=== PATIENT | female | born 1940 | race Caucasian/White ===

== ENCOUNTER 2016-08-17 09:32 | Inpatient (IN) | payer BC, MEDICARE ==
[~2016-08-17] VITALS: Ht 162.6 cm; Wt 83.9 kg
--- NOTE | 2016-08-17 10:12 | RAD ---
Portable chest, 08/17/2016: History: Preop evaluation, fall The heart size and pulmonary vascularity are normal. There is mild tortuosity of the thoracic aorta. No pulmonary infiltrates are seen. There is no evidence of pleural fluid or pneumothorax. IMPRESSION: No acute cardiopulmonary abnormality is detected.
--- NOTE | 2016-08-17 10:16 | RAD ---
Pelvis with right hip, 3 views, 08/17/2016: History: Hip pain, fall The upper pelvis was not completely included on this exam. The bony structures are demineralized. There is a comminuted intertrochanteric fracture of the right hip. There is mild impaction and overriding at the fracture site. There are mild degenerative changes at both hip joints. No additional fracture or dislocation is evident. IMPRESSION: Acute intertrochanteric fracture of the right hip.
[2016-08-17] MEDS ORDERED: ONDANSETRON PF 4 MG/2 ML VIAL. IV PRN (10:45)
--- NOTE | 2016-08-17 11:16 | ACF ---
Admission Forms Criteria MUSCULOSKELETAL DISEASE GRG Clinical Indications for Admission to Inpatient Care (Place 'X' for any and all applicable criteria): Hospital admission is needed for appropriate care of the patient because of 1 or more of the following: [X]I. Fracture, dislocation, or other musculoskeletal injury requiring inpatient care(medical) as indicated by 1 or more of the following(4)(5)(6)(7) [ ]a) Vertebral fracture requiring observation for instability or neurologic compromise (8) [ ]b) Compartment syndrome (proven or cannot be ruled out during observation level of care) (9) [ ]c) Limb-threatening injury [ ]d) Major injury requiring inpatient stabilization such as traction initiation or external fixation before internal fixation or closure of complex or open fracture [X]e) Major injury requiring inpatient treatment after emergency or observation level care (as appropriate) [ ]f) Severe pain requiring acute inpatient management [ ]g) Injury with suspicion of abuse or neglect (eg., child, dependent elderly) [ ]II. Newly diagnosed or suspected bone, joint, or orthopedic device infection (e.g., osteomyelitis, septic arthritis) needing 1 or more of the following(1)(2)(3) [ ]a) IV antibiotics that cannot be initiated in other than inpatient setting (e.g., patient too unstable or home infusion not available) [ ]b) Device removal or replacement [ ]c) Bone or soft tissue debridement [ ]d) Joint drainage (drain placement or repetitive aspirations) [ ]III. Severe rheumatologic disease (e.g., systemic lupus erythematosus, rheumatoid arthritis) with complications or comorbidities (Also use Optimal Recovery Care Criteria or General Recovery Criteria as appropriate on the basis of predominant condition), including 1 or more of the following( 10)(11)(12)(13) [ ]a) Severe infection (e.g., POND TENDER infection, sepsis) (14) [ ]b) Respiratory complications, including 1 or more of the following : [ ]i) Pleural effusion with respiratory compromise [ ]ii) Pulmonary hypertension with congestive failure [ ]iii) Respiratory failure [ ]iv) Pulmonary hemorrhage (15) [ ]c) Hematologic disease, including 1 or more of the following: [ ]i) Coagulopathy with bleeding [ ]ii) Thrombosis with hypercoagulable state [ ]iii) Thrombotic thrombocytopenic purpura [ ]d) Cerebritis with seizures, psychosis, or other severe abnormalities [ ]e) Vertebral destruction with monitoring needed for cervical myelopathy& possible respiratory compromise [ ]f) Exacerbation that requires inpatient treatment (e.g., intravenous immunosuppression) (16) [ ]g) Acute renal failure [ ]h) Cerebritis with seizures, psychosis, Altered mental status, or other neurologic abnormalities [ ]i) Pericardial effusion with tamponade [ ]j) Vertebral destruction, with monitoring needed for cervical myelopathy and possible respiratory compromise [ ]IV. Severe vasculitis with complications or comorbidities (Also use Optimal Recovery Care Criteria General Recovery Criteria as appropriate on the basis of predominant condition), including 1 or more of the following(11)(12)(17)(18)(19)(20) [ ]a) Exacerbation that requires inpatient treatment (e.g., intravenous immunosuppression) (19)(21) [ ]b) Pulmonary hemorrhage (15) [ ]c) POND TENDER vasculitis with seizures, psychosis, Altered mental status that is severe or persistent, or other severe abnormalities (22) [ ]d) Cerebral infarction [ ]e) Gastrointestinal ischemia [ ]f) Gangrene or threatened amputation [ ]g) Renal failure (16) [ ]h) Other significant complications of vasculitis ( eg., tissue or organ ischemia, organ dysfunction ) [ ]V. Severe myopathy as indicated by 1 or more of the following (28)(29) [ ]a) New onset of airway compromise or inability to swallow [ ]b) Respiratory deterioration with observation needed for impending respiratory failure [ ]c) Exacerbation that requires inpatient treatment (e.g., intravenous immunosuppression) [ ]. Severe crystal gout (arthropathy) indicated by 1 or more of the following (23)(24) [ ]a) Severe pain requiring acute inpatient management [ ]b) Exacerbation that requires inpatient treatment (e.g., intravenous treatment) [ ]VII.Rhabdomyolysis and 1 or more of the following (25)(26)(27) [ ]a) Acute renal failure [ ]b) Need for intravenous hydration after emergency or observation level care (as appropriate) [ ]c) Inability to maintain oral hydration [ ]d) Change in mental status [ ]e) Electrolyte abnormality that remains after emergency or observation level care (as appropriate) [ ]VIII Post amputation complication, as indicated by ANY ONE of the following [ ]a) Infection [ ]b) Dehiscence [ ]c) Myodesis failure [ ]IX. Severe pain requiring acute inpatient management due to musculoskeletal condition [ ]X. Musculoskeletal Disease and ALL of the following: [ ]a) Symptom or finding for which emergency and observation care have failed or are not considered appropriate (Use General Criteria: Observation Care as appropriate) [ ]b) Presence of ANY ONE of the following [ ]i) A General Admission Criteria [ ]ii) A Pediatric General Admission Criteria The original [facility] content created by [email or web address] [employer] has been revised. The portions of the content which have been revised are identified through the use of italic text or in bold, and [facility] has neither reviewed nor approved the modified material. All other unmodified content is copyright [facility]. Please see references footnoted in the original [facility] edition 2016 Admission Criteria Met?: Yes FLORIDALMA ORTIZ August 17, 2016 11:15
[2016-08-17 11:19] LABS: INR 1.1 (0.8-1.1); PROTHROMBIN TIME PATIENT 13.5 SEC (11.7-14.0)
[2016-08-17 11:23] LABS: CALCIUM 8.6 mg/dL (8.5-10.1); GFR 54.2
[2016-08-17 11:27] LABS: ALBUMIN 3.4 g/dL (3.4-5.0); TOTAL BILIRUBIN 0.5 mg/dL (0.2-1.0); TOTAL PROTEIN 6.9 g/dL (6.4-8.2)
[2016-08-17] MEDS: fentaNYL PF VIAL 100 MCG/2 ML VIAL IV PRN ×2 (11:29→14:20)
--- NOTE | 2016-08-17 11:58 | PHYS DOC ---
Past Medical History Past Medical History: Arthritis, Constipation, Hypertension, Other Additional Past Medical Histor: hernia, graves disease, gout Past Surgical History: Hysterectomy, Tonsillectomy, Other Additional Past Surgical Histo: tumor removed off adrenal gland, RT ARM SURGERY , HERNIA REPAIR, LFT BREAST Alcohol Use: None Drug Use: Marijuana Social History Narrative: MEDICAL MARIJUANA Adult General Chief Complaint Chief Complaint: HIP PAIN HPI HPI Patient is a 75 year old male presenting to the emergency department for evaluation of right hip pain status post fall shortly prior to arrival. She takes cannabis candies and she is slightly confused currently the only place that she complains of pain is her right hip. She denies any weakness numbness or tingling. Review of Systems Review of Systems Constitutional: Denies fever or chills [] Eyes: Denies change in visual acuity, redness, or eye pain [] HENT: Denies nasal congestion or sore throat [] Respiratory: Denies cough or shortness of breath [] Cardiovascular: No additional information not addressed in HPI [] GI: Denies abdominal pain, nausea, vomiting, bloody stools or diarrhea [] : Denies dysuria or hematuria [] Musculoskeletal: Denies back pain. + R hip joint pain [] Integument: Denies rash or skin lesions [] Neurologic: Denies headache, focal weakness or sensory changes [] Allergies Allergies Allergies Coded Allergies Type Severity Reaction Last Updated Verified Penicillins Allergy Intermediate 02/05/15 No Physical Exam Physical Exam Constitutional: Well developed, well nourished, no acute distress, non-toxic appearance. [] HENT: Normocephalic, atraumatic, bilateral external ears normal, oropharynx moist, no oral exudates, nose normal. [] Eyes: PERRLA, EOMI, conjunctiva normal, no discharge. [] Neck: Normal range of motion, no tenderness, supple, no stridor. [] Cardiovascular:Heart rate regular rhythm, no murmur [] Lungs & Thorax: Bilateral breath sounds clear to auscultation [] Abdomen: Bowel sounds normal, soft, no tenderness, no masses, no pulsatile masses. [] Skin: Warm, dry, no erythema, no rash. [] Back: No tenderness, no CVA tenderness. [] Extremities: R hip ttp Neurologic: Alert and oriented X 3, normal motor function, normal sensory function, no focal deficits noted. [] Current Patient Data Vital Signs Vital Signs Date Time Temp Pulse Resp B/P (MAP) Pulse Ox O2 Delivery O2 Flow Rate FiO2 08/17/16 10:00 68 117/72 (87) 97 Room Air 08/17/16 09:40 97.8 20 97.8 EKG EKG [] Radiology/Procedures Radiology/Procedures Right hip intertrochanteric fracture. Course & Med Decision Making Course & Med Decision Making Right hip fracture will require surgery and she will be admitted to the hospitalist service. Dragon Disclaimer Dragon Disclaimer This electronic medical record was generated, in whole or in part, using a voice recognition dictation system. Departure Departure Impression: Primary Impression: Hip fracture, intertrochanteric Disposition: ADMITTED INPATIENT Admitting Physician: Phuong Finch Condition: STABLE Referrals: NON,STAFF (PCP) Problem Qualifiers Primary Impression: Hip fracture, intertrochanteric Encounter type: initial encounter Fracture type: closed Fracture alignment : displaced Laterality: right Qualified Codes: S72.141A - Displaced intertrochanteric fracture of right femur, initial encounter for closed fracture SHAUNA BOONE DO August 17, 2016 11:57
[2016-08-17 12:43] LABS: BASO % 0 % (0-3); EOS % 1 % (0-3); HEMATOCRIT 38.3 % (36.0-47.0); HEMOGLOBIN 12.8 g/dL (12.0-15.5); LYMPH # 1.8 x10^3/uL (1.0-4.8); LYMPH % 12 % (24-48); MEAN CORPUSCULAR HEMOGLOBIN 29 pg (25-35); MEAN CORPUSCULAR HGB CONC 34 g/dL (31-37); MEAN CORPUSCULAR VOLUME 88 fL (79-100); MONO % 6 % (0-9); NEUT % 81 % (31-73); PLATELET COUNT 212 x10^3/uL (140-400); RED BLOOD COUNT 4.37 x10^6/uL (3.50-5.40); RED CELL DISTRIBUTION WIDTH 15.3 % (11.5-14.5); WHITE BLOOD COUNT 15.2 x10^3/uL (4.0-11.0)
[2016-08-17] MEDS ORDERED: CLINDAMYCIN 900MG PREMIX 50 ML IV ONE (13:15)
[2016-08-17 13:43] VITALS: BP 150/69
[2016-08-17 15:00] VITALS: BP_SYST 102; BP_SYST 134; BP_DIAS 51; BP_DIAS 84
--- NOTE | 2016-08-17 15:59 | PDOC1 ---
History and Physical Date of Admission Date of Admission DATE: 08/17/16 TIME: 15:53 Identification/Chief Complaint Chief Complaint hip pain Problems: Source Source: Caregiver, Chart review, Patient History of Present Illness History of Present Illness Ms. Galindo is a 75 year old female admit after a fall, w./ right hip pain. She was tripped by a dog when on the stairs and fell no her right hip. new fx, seen by Ortho, plan to OR in AM Pain 7/10, now 4./10 after IV pain meds She takes cannabis candies for left eye pain s/p ocular shingles Past Medical History Cardiovascular: HTN Pulmonary: No pertinent hx Heme/Onc: No pertinent hx Hepatobiliary: No pertinent hx Psych: No pertinent hx Infectious disease: Herpes zoster Endocrine: Hypothyroidism, Other (Gout) Dermatology: Other Family History Family History: Hypertension Social History Smoke: No ALCOHOL: rare Drugs: Marijuana Current Problem List Problem List Problems Medical Problems: (1) Hip fracture, intertrochanteric Status: Acute Problems: Current Medications Current Medications Current Medications Ondansetron HCl (Zofran) 4 mg PRN Q8HRS PRN IV NAUSEA/VOMITING Last administered on 08/17/16 11:25; Start 08/17/16 at 10:45; Stop 08/18/16 at 10:44 Fentanyl Citrate (Fentanyl 2ml Vial) 50 mcg PRN Q1HR PRN IV PAIN Last administered on 08/17/16t 14:20; Start 08/17/16 at 10:45; Stop 08/18/16 at 10:44 Clindamycin Phosphate 50 ml @ 100 mls/hr 1X ONCE IV ; Start 08/17/16 at 13:15 ; Stop 08/17/16 at 13:44; Status DC Oxycodone/ Acetaminophen (Percocet 7.5/ 325) 1 tab PRN Q4HRS PRN PO PAIN; Start 08/17/16 at 15:15 Allergies Allergies: Coded Allergies: Latex, Natural Rubber (Verified Allergy, Intermediate, LOCALIZED REDDNESS AND SWELLING, 08/17/16) Penicillins (Unverified Allergy, Intermediate, 02/05/15) ROS General: No: Chills, Night Sweats, Fatigue, Malaise, Appetite, Other PSYCHOLOGICAL ROS: No: Anxiety, Behavioral Disorder, Concentration difficultie , Decreased libido, Depression, Disorientation, Hallucinations, Hostility, Irritablity, Memory difficulties, Mood Swings, Obsessive thoughts, Physical abuse, Sexual abuse, Sleep disturbances, Suicidal ideation, Other Eyes: No Blurry vision, No Decreased vision, No Double vision, No Dry eyes, No Excessive tearing, No Eye Pain, No Itchy Eyes, No Loss of vision, No Photophobia , No Scotomata, No Uses contacts, No Uses glasses, No Other HEENT: No: Heacaches, Visual Changes, Hearing change, Nasal congestion, Nasal discharge, Oral lesions, Sinus pain, Sore Throat, Epistaxis, Sneezing, Snoring, Tinnitus, Vertigo, Vocal changes, Other Respiratory: No: Cough, Hemoptysis, Orthopnea, Pleuritic Pain, Shortness of breath, SOB with excertion, Sputum Changes, Stridor, Tachypnea, Wheezing, Other Cardiovascular: No Chest Pain, No Palpitations, No Orthopnea, No Paroxysmal Noc. Dyspnea, No Edema, No Lt Headedness, No Other Gastrointestinal: No Nausea, No Vomiting, No Abdominal Pain, No Diarrhea, No Constipation, No Melena, No Hematochezia, No Other Genitourinary: No Dysuria, No Frequency, No Incontinence, No Hematuria, No Retention, No Discharge, No Urgency, No Pain, No Flank Pain, No Other, No , No , No , No , No , No , No Musculoskeletal: No Gait Disturbance, No Joint Pain, No Joint Stiffness, No Joint Swelling, No Muscle Pain, No Muscular Weakness, No Pain In:, No Swelling In:, No Other Neurological: No Behavorial Changes, No Bowel/Bladder ControlChng, No Confusion , No Dizziness, No Gait Disturbance, No Headaches, No Impaired Coord/balance, No Memory Loss, No Numbness/Tingling, No Seizures, No Speech Problems, No Tremors, No Visual Changes, No Weakness, No Other Skin: Yes Dry Skin, No Eczema, No Hair Changes, No Lumps, No Mole Changes, No Mottling, No Nail Changes, No Pruritus, No Rash, No Skin Lesion Changes, No Other, No Acne Physical Exam General: Alert, No acute distress, mild distress HEENT: Atraumatic, EOMI, Mucous membr. moist/pink Lungs: Clear to auscultation Heart: no gallops Abdomen: Normal bowel sounds, Soft Extremities: No clubbing, No edema, Normal pulses Skin: No significant lesion Neuro: Normal gait, Normal speech, Normal tone, Sensation intact Psych/Mental Status: Mood NL Vitals Vitals Vital Signs Date Time Temp Pulse Resp B/P (MAP) Pulse Ox O2 Delivery O2 Flow Rate FiO2 08/17/16 14:20 18 Room Air 08/17/16 13:43 97.6 77 150/69 (96) 92 97.6 Labs Labs Laboratory Tests Test 08/17/16 11:00 08/17/16 12:20 Prothrombin Time 13.5 SEC (11.7-14.0) Prothromb Time International Ratio 1.1 (0.8-1.1) Activated Partial Thromboplast Time 26 SEC (24-38) Sodium Level 138 mmol/L (136-145) Potassium Level 4.0 mmol/L (3.5-5.1) Chloride Level 102 mmol/L (98-107) Carbon Dioxide Level 25 mmol/L (21-32) Anion Gap 11 (6-14) Blood Urea Nitrogen 26 mg/dL (7-20) Creatinine 1.0 mg/dL (0.6-1.0) Estimated GFR (Cockcroft-Gault) 54.2 BUN/Creatinine Ratio 26 (6-20) Glucose Level 132 mg/dL (70-99) Calcium Level 8.6 mg/dL (8.5-10.1) Total Bilirubin 0.5 mg/dL (0.2-1.0) Aspartate Amino Transf (AST/SGOT) 56 U/L (15-37) Alanine Aminotransferase (ALT/SGPT) 65 U/L (14-59) Alkaline Phosphatase 77 U/L (46-116) Total Protein 6.9 g/dL (6.4-8.2) Albumin 3.4 g/dL (3.4-5.0) Albumin/Globulin Ratio 1.0 (1.0-1.7) White Blood Count 15.2 x10^3/uL (4.0-11.0) Red Blood Count 4.37 x10^6/uL (3.50-5.40) Hemoglobin 12.8 g/dL (12.0-15.5) Hematocrit 38.3 % (36.0-47.0) Mean Corpuscular Volume 88 fL (79-100) Mean Corpuscular Hemoglobin 29 pg (25-35) Mean Corpuscular Hemoglobin Concent 34 g/dL (31-37) Red Cell Distribution Width 15.3 % (11.5-14.5) Platelet Count 212 x10^3/uL (140-400) Neutrophils (%) (Auto) 81 % (31-73) Lymphocytes (%) (Auto) 12 % (24-48) Monocytes (%) (Auto) 6 % (0-9) Eosinophils (%) (Auto) 1 % (0-3) Basophils (%) (Auto) 0 % (0-3) Neutrophils # (Auto) 12.3 x10^3uL (1.8-7.7) Lymphocytes # (Auto) 1.8 x10^3/uL (1.0-4.8) Monocytes # (Auto) 0.9 x10^3/uL (0.0-1.1) Eosinophils # (Auto) 0.2 x10^3/uL (0.0-0.7) Basophils # (Auto) 0.0 x10^3/uL (0.0-0.2) Laboratory Tests Test 08/17/16 11:00 08/17/16 12:20 Prothrombin Time 13.5 SEC (11.7-14.0) Prothromb Time International Ratio 1.1 (0.8-1.1) Activated Partial Thromboplast Time 26 SEC (24-38) Sodium Level 138 mmol/L (136-145) Potassium Level 4.0 mmol/L (3.5-5.1) Chloride Level 102 mmol/L (98-107) Carbon Dioxide Level 25 mmol/L (21-32) Anion Gap 11 (6-14) Blood Urea Nitrogen 26 mg/dL (7-20) Creatinine 1.0 mg/dL (0.6-1.0) Estimated GFR (Cockcroft-Gault) 54.2 BUN/Creatinine Ratio 26 (6-20) Glucose Level 132 mg/dL (70-99) Calcium Level 8.6 mg/dL (8.5-10.1) Total Bilirubin 0.5 mg/dL (0.2-1.0) Aspartate Amino Transf (AST/SGOT) 56 U/L (15-37) Alanine Aminotransferase (ALT/SGPT) 65 U/L (14-59) Alkaline Phosphatase 77 U/L (46-116) Total Protein 6.9 g/dL (6.4-8.2) Albumin 3.4 g/dL (3.4-5.0) Albumin/Globulin Ratio 1.0 (1.0-1.7) White Blood Count 15.2 x10^3/uL (4.0-11.0) Red Blood Count 4.37 x10^6/uL (3.50-5.40) Hemoglobin 12.8 g/dL (12.0-15.5) Hematocrit 38.3 % (36.0-47.0) Mean Corpuscular Volume 88 fL (79-100) Mean Corpuscular Hemoglobin 29 pg (25-35) Mean Corpuscular Hemoglobin Concent 34 g/dL (31-37) Red Cell Distribution Width 15.3 % (11.5-14.5) Platelet Count 212 x10^3/uL (140-400) Neutrophils (%) (Auto) 81 % (31-73) Lymphocytes (%) (Auto) 12 % (24-48) Monocytes (%) (Auto) 6 % (0-9) Eosinophils (%) (Auto) 1 % (0-3) Basophils (%) (Auto) 0 % (0-3) Neutrophils # (Auto) 12.3 x10^3uL (1.8-7.7) Lymphocytes # (Auto) 1.8 x10^3/uL (1.0-4.8) Monocytes # (Auto) 0.9 x10^3/uL (0.0-1.1) Eosinophils # (Auto) 0.2 x10^3/uL (0.0-0.7) Basophils # (Auto) 0.0 x10^3/uL (0.0-0.2) VTE Prophylaxis Ordered VTE Prophylaxis Devices: Yes VTE Pharmacological Prophylaxi: No Assessment/Plan Assessment/Plan hip fracture, hip pain to OR in AM htn gout, obesity, BMI 31 hypothyroid leukocytosis, reactive, will Order a ANIKA CARROLL MD August 17, 2016 15:59
[2016-08-17] MEDS ORDERED: ALLOPURINOL 100 MG TABLET. PO SCH (16:00)
[2016-08-17] MEDS ORDERED: amLODIPine BESYLATE 5 MG TABLET PO SCH (16:00)
[2016-08-17] MEDS ORDERED: TRAZ50TA15 PO (16:21)
[2016-08-17] MEDS ORDERED: LEVO150T5 PO (16:21)
[2016-08-17] MEDS ORDERED: HYDR12.53 PO (16:21)
[2016-08-17] MEDS ORDERED: CITA40TA5 PO (16:21)
[2016-08-17] MEDS ORDERED: ALLO100T PO (16:21)
[2016-08-17] MEDS ORDERED: AMLO2.5T PO (16:21)
[2016-08-17] MEDS ORDERED: BENA20TA2 PO (16:21)
[2016-08-17] MEDS: CITALOPRAM 20 MG TABLET. PO SCH (16:45)
[2016-08-17] MEDS: amLODIPine BESYLATE 2.5 MG TABLET PO SCH (16:45)
[2016-08-17] MEDS: ALLOPURINOL 100 MG TABLET. PO SCH (16:46)
[2016-08-17 17:56] LABS: BILIRUBIN,URINE NEGATIVE (NEG); GLUCOSE,URINE NEGATIVE (NEG); NITRITE,URINE NEGATIVE (NEG); PROTEIN,URINE NEGATIVE (NEG-TRACE); UROBILINOGEN,URINE 0.2 mg/dL (0.2 mg/dL)
[2016-08-17 18:08] LABS: BACTERIA,URINE 0 /HPF (0-FEW); RBC,URINE 0 /HPF (0-2); SQUAMOUS EPITHELIAL CELL,UR OCC /LPF; WBC,URINE OCC /HPF (0-4)
[2016-08-17 19:15] VITALS: BP 123/59
[2016-08-17] MEDS: oxyCODONE/APAP 7.5/325 1 TAB TABLET PO PRN (19:43)
[2016-08-17] MEDS: traZODone 50 MG TABLET. PO SCH (22:23)
[2016-08-17 23:12] VITALS: BP 113/63
[2016-08-18] VITALS (12 sets, daily range): BP systolic 89–148; BP diastolic 45–86
[2016-08-18] MEDS: fentaNYL PF VIAL 100 MCG/2 ML VIAL IV PRN ×3 (06:00→09:16)
[2016-08-18] MEDS ORDERED: BUPIVACAINE MPF 0.5% 30 ML VIAL. ONE (06:29)
[2016-08-18] MEDS ORDERED: LIDOCAINE 1% 20 ML VIAL. ONE (06:29)
[2016-08-18] MEDS ORDERED: PROPOFOL 20 ML IV ONE (06:49)
[2016-08-18] MEDS ORDERED: ONDANSETRON PF 4 MG/2 ML VIAL. ONE (06:49)
[2016-08-18] MEDS ORDERED: DEXAMETHASONE SOD PHOS 20 MG/5 ML VIAL. ONE (06:49)
[2016-08-18] MEDS ORDERED: LIDOCAINE 2% PF Vial for OR 5 ML VIAL. ONE (06:49)
[2016-08-18] MEDS ORDERED: SEVOFLURANE 61 TO 120 MINUTES. IH ONE (06:49)
[2016-08-18] MEDS ORDERED: KETOROLAC 60 MG/2 ML INJ FOR OR. ONE (06:50)
[2016-08-18] MEDS ORDERED: fentaNYL PF VIAL 100 MCG/2 ML VIAL ONE (06:50)
[2016-08-18] MEDS ORDERED: MORPHINE SULFATE 2 MG/ML DISP.SYRIN. IV PRN (07:00)
[2016-08-18] MEDS ORDERED: HYDROmorphone 2 MG/ML VIAL IV PRN (07:00)
[2016-08-18] MEDS ORDERED: LIDOCAINE 1% 1 ML SYRINGE. ID PRN (07:00)
[2016-08-18] MEDS ORDERED: IV RINGERS,LACTATED 1000ML 1,000 ML IV SCH (07:00)
[2016-08-18] MEDS ORDERED: fentaNYL PF VIAL 100 MCG/2 ML VIAL IV PRN (07:00)
[2016-08-18] MEDS ORDERED: PROCHLORPERAZINE 10 MG/2 ML VIAL. IV PRN (07:00)
[2016-08-18] MEDS ORDERED: LEVOTHYROXINE 150 MCG TABLET PO SCH (07:00)
[2016-08-18] MEDS: LEVOTHYROXINE 150 MCG TABLET PO SCH ×2 (07:00→12:31)
--- NOTE | 2016-08-18 07:28 | PDOC ---
BRIEF OPERATIVE NOTE Date: August 18, 2016 Pre-Op Diagnosis R IT hip fx Post-Op Diagnosis same Procedure Performed IMN R hip fx Surgeon Robyn Anesthesia Type: General, Local Blood Loss 75mL Complications none LUISA BAILON II, MD August 18, 2016 07:28
[2016-08-18] MEDS ORDERED: CLINDAMYCIN 900MG PREMIX 50 ML IV ONE (07:30)
[2016-08-18] MEDS ORDERED: MORPHINE SULFATE 5 MG, KETOROLAC TROMETHAMINE 30 MG, ROPIVacaine 0.5% PF 60 ML, EPINEPH... INT ART ONE ×5 (07:45)
[2016-08-18] MEDS ORDERED: ePHEDrine PF IN SALINE 50 MG/5 ML DISP.SYRIN IV ONE (07:50)
--- NOTE | 2016-08-18 11:07 | EKG ---
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
--- NOTE | 2016-08-18 12:06 | OP ---
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 PREOPERATIVE DIAGNOSIS: Right intertrochanteric hip fracture. POSTOPERATIVE DIAGNOSIS: Right intertrochanteric hip fracture. PROCEDURE PERFORMED: Closed reduction and intramedullary nailing of right intertrochanteric hip fracture. COMPONENTS INSERTED: [employer] Trigen Intertan, 10 x 18 125-degree nail with a 100-mm lag screw, 95-mm compression screw, and a distal interlocking screw. ESTIMATED BLOOD LOSS: 75 mL. COMPLICATIONS: None. REASON FOR PROCEDURE: The patient is a very pleasant 75-year-old, visiting friends around the area when she slipped and fell, landing onto her right side. She was seen in our Emergency Department. For details, please see my consult note. I had a discussion of risks, benefits, and alternatives of the above surgery with her and she elected to proceed. DESCRIPTION OF PROCEDURE: The patient was greeted in the preoperative area by myself. Correct extremity was marked and verified. She was taken to the operative suite and antibiotics were started en route. Once in the OR, she was transferred gently supine to the OR table after successful induction of general anesthesia. All pressure points were padded. We placed her arms across the chest and secured them in place over a pillow. Left leg in a well-leg price. Right leg in a traction ski boot. Peroneal post, padded, was used. I then brought in C-arm for my reduction maneuver and noted that her fracture was a little difficult and took me more time to reduce. Once I was satisfied with the relationship of the head and neck and shaft, I then prepped and draped the right hip and lower extremity in our usual sterile fashion. We then conducted a standard preoperative timeout. I then brought in C-arm again to confirm that my reduction was maintained and then palpated, marked surface anatomy and made an incision proximal to her greater trochanter and bluntly dissected down to the tip of the greater trochanter and inserted the guidewire under biplanar fluoroscopic guidance and then followed this with my entry reamer. I then impacted my nail into position followed by placing the trocar against the skin laterally for my lag and compression screws. I then incised the skin over here as well as the fascia and inserted the inner trocar down to bone. I then advanced my guidewire to a center-center position as guided by biplanar fluoroscopy and then used my lateral entry drill for my compression screw followed by my de-rotation bar and then drilled for my lag screw and noted that drilling for the lag screw resulted in some loss of reduction, but I felt that generating compression with my construct would help counteract this. I therefore measured for my lag screw and placed my lag screw to generate approximately 7 mm of compression. After my lag screw was placed, I then placed my compression screw, which reduced the fracture gap somewhat. After this, I removed that aiming arm and placed my distal interlocking screw aiming arm against the skin and made a stab incision and bluntly dissected and spread down to bone with a hemostat and then inserted my trocar against the bone. I then drilled and measured off the drill bit and then placed my distal interlocking screw. I then took my final images after removing the aiming arm, confirming appropriate fracture reduction and hardware position. I then injected my periarticular mixture into the bryce-incisional areas and around the fracture site. After this, I closed the subcutaneous tissue with inverted, interrupted 2-0 followed by layo for the skin. The leg was cleansed and dried and exclusive dressings were applied. Traction had been released after placement of the distal interlocking screw. She was awakened from anesthesia and transferred in supine to the recovery room prior to be taken to PACU in stable and extubated condition. Prior to completion of wound closure, all counts were reported as correct x 2. She can weight bear as tolerated. She will be re-admitted to the care of the hospitalist service. NILES BAILON MD DR: GEOFFREY/angeles JOB#: [id number] / [id number] FLORENCIO
[2016-08-18] MEDS: amLODIPine BESYLATE 2.5 MG TABLET PO SCH (12:22)
[2016-08-18] MEDS: CITALOPRAM 20 MG TABLET. PO SCH (12:23)
[2016-08-18] MEDS: ALLOPURINOL 100 MG TABLET. PO SCH (12:23)
--- NOTE | 2016-08-18 12:28 | CONS ---
DATE OF CONSULTATION: 08/17/2016 REFERRING PROVIDER: Phuong Finch. CONSULTING PROVIDER: Niles Carlson MD REASON FOR CONSULTATION: Right hip fracture. CHIEF COMPLAINT: Right hip pain. Left chest wall pain. HISTORY OF PRESENT ILLNESS: The patient is a very pleasant 75-year-old visiting the nuns at the [facility], when she lost her footing and misstepped coming out of their residence. She tells me she fell, landed onto her right side and noted immediate onset of hip pain and inability to bear weight. She denies any preceding symptoms. She denies hitting her head on the way down. Her hip pain is tolerable at rest, it is worse with movement. It does radiate to her thigh. Regarding her left sided chest wall pain, it hurts when something touches her or if she presses on it, but otherwise is not that noticeable. PAST MEDICAL HISTORY: 1. Arthritis. 2. Constipation. 3. Hypertension. 4. Graves' disease. 5. Gout. 6. Incisional hernia. PAST SURGICAL HISTORY: Hysterectomy, tonsillectomy, adrenal tumor resection, cubital tunnel release, herniorrhaphy. SOCIAL HISTORY: Uses marijuana, most recent this morning. REVIEW OF SYSTEMS: Twelve point review of systems negative except as per HPI. MEDICATIONS: Reviewed, please see MRAD. PHYSICAL EXAMINATION: GENERAL: The patient is alert and oriented. Her speech is clear. She answers and asks questions appropriately. HEENT: Head normocephalic, atraumatic. Extraocular muscles are intact. CARDIOVASCULAR: Regular rate and rhythm. LUNGS: Respirations are unlabored. ABDOMEN: Soft, nondistended. EXTREMITIES: Examination of bilateral upper extremities reveals well healed cubital tunnel incision on the right side. She does have atrophy in her hand. Otherwise, motor and sensation are intact in median, radial, ulnar nerves. Examination of bilateral lower extremities reveals right lower extremity short and externally rotated. Dorsalis pedis 1+ and symmetric. EHL and FHL 5/5 bilaterally. Tender over her right hip region. IMAGING: X-rays are reviewed. Chest x-ray report detected no abnormality. Hip x-ray as well as pelvis x-ray were interpreted by myself. The report was also reviewed. She has an intertrochanteric right hip fracture. IMPRESSION: Closed right intertrochanteric hip fracture. PLAN: I did discuss the risks, benefits, alternatives to proceeding with closed reduction and intramedullary nailing with this patient. Her questions were answered. I will call the operating room and schedule the case. She normally ambulates. She tells me she has not been exercising much in the past year secondary to medical problems, but otherwise she is active. NILES CARLSON MD DR: GEOFFREY/[place] JOB#: [id number] / [id number] FLORENCIO
--- NOTE | 2016-08-18 15:38 | PDOC ---
PROGRESS NOTES Chief Complaint Chief Complaint hip fracture, hip pain htn gout, obesity, BMI 31 hypothyroid leukocytosis, reactive, History of Present Illness History of Present Illness s/p OR pain much better feels well, less distress talkative and doing OK discussed wirh Dr. Carlson Vitals Vitals Vital Signs Date Time Temp Pulse Resp B/P (MAP) Pulse Ox O2 Delivery O2 Flow Rate FiO2 08/18/16 12:22 82 133/62 08/18/16 11:04 97.6 14 90 Room Air 97.6 08/18/16 09:58 2 Physical Exam General: Alert, Oriented X3, Cooperative, No acute distress Abdomen: Normal bowel sounds, Soft Extremities: No clubbing, No edema, Normal pulses Skin: No rashes, No significant lesion Labs LABS Laboratory Tests Test 08/17/16 16:00 08/17/16 16:30 Nasal Screen MRSA (PCR) Negative (Negative) Urine Color Yellow Urine Clarity Clear Urine pH 7.0 Urine Specific [place] 1.020 Urine Protein Negative mg/dL (NEG-TRACE) Urine Glucose (UA) Negative mg/dL (NEG) Urine Ketones (Stick) Negative mg/dL (NEG) Urine Blood Negative (NEG) Urine Nitrite Negative (NEG) Urine Bilirubin Negative (NEG) Urine Urobilinogen Dipstick 0.2 mg/dL (0.2 mg/dL) Urine Leukocyte Esterase Negative (NEG) Urine RBC 0 /HPF (0-2) Urine WBC Occ /HPF (0-4) Urine Squamous Epithelial Cells Occ /LPF Urine Bacteria 0 /HPF (0-FEW) Urine Mucus Mod /LPF Review of Systems Review of Systems no nv.d pain acceptable Assessment and Plan Assessmemt and Plan Problems Medical Problems: (1) Hip fracture, intertrochanteric Status: Acute Problems: Comment Review of Relevant I have reviewed the following items viola (where applicable) has been applied. Labs Laboratory Tests Test 08/17/16 11:00 08/17/16 12:20 08/17/16 16:00 08/17/16 16:30 Prothrombin Time 13.5 SEC (11.7-14.0) Prothromb Time International Ratio 1.1 (0.8-1.1) Activated Partial Thromboplast Time 26 SEC (24-38) Sodium Level 138 mmol/L (136-145) Potassium Level 4.0 mmol/L (3.5-5.1) Chloride Level 102 mmol/L (98-107) Carbon Dioxide Level 25 mmol/L (21-32) Anion Gap 11 (6-14) Blood Urea Nitrogen 26 mg/dL (7-20) Creatinine 1.0 mg/dL (0.6-1.0) Estimated GFR (Cockcroft-Gault) 54.2 BUN/Creatinine Ratio 26 (6-20) Glucose Level 132 mg/dL (70-99) Calcium Level 8.6 mg/dL (8.5-10.1) Total Bilirubin 0.5 mg/dL (0.2-1.0) Aspartate Amino Transf (AST/SGOT) 56 U/L (15-37) Alanine Aminotransferase (ALT/SGPT) 65 U/L (14-59) Alkaline Phosphatase 77 U/L (46-116) Total Protein 6.9 g/dL (6.4-8.2) Albumin 3.4 g/dL (3.4-5.0) Albumin/Globulin Ratio 1.0 (1.0-1.7) White Blood Count 15.2 x10^3/uL (4.0-11.0) Red Blood Count 4.37 x10^6/uL (3.50-5.40) Hemoglobin 12.8 g/dL (12.0-15.5) Hematocrit 38.3 % (36.0-47.0) Mean Corpuscular Volume 88 fL (79-100) Mean Corpuscular Hemoglobin 29 pg (25-35) Mean Corpuscular Hemoglobin Concent 34 g/dL (31-37) Red Cell Distribution Width 15.3 % (11.5-14.5) Platelet Count 212 x10^3/uL (140-400) Neutrophils (%) (Auto) 81 % (31-73) Lymphocytes (%) (Auto) 12 % (24-48) Monocytes (%) (Auto) 6 % (0-9) Eosinophils (%) (Auto) 1 % (0-3) Basophils (%) (Auto) 0 % (0-3) Neutrophils # (Auto) 12.3 x10^3uL (1.8-7.7) Lymphocytes # (Auto) 1.8 x10^3/uL (1.0-4.8) Monocytes # (Auto) 0.9 x10^3/uL (0.0-1.1) Eosinophils # (Auto) 0.2 x10^3/uL (0.0-0.7) Basophils # (Auto) 0.0 x10^3/uL (0.0-0.2) Nasal Screen MRSA (PCR) Negative (Negative) Urine Color Yellow Urine Clarity Clear Urine pH 7.0 Urine Specific [place] 1.020 Urine Protein Negative mg/dL (NEG-TRACE) Urine Glucose (UA) Negative mg/dL (NEG) Urine Ketones (Stick) Negative mg/dL (NEG) Urine Blood Negative (NEG) Urine Nitrite Negative (NEG) Urine Bilirubin Negative (NEG) Urine Urobilinogen Dipstick 0.2 mg/dL (0.2 mg/dL) Urine Leukocyte Esterase Negative (NEG) Urine RBC 0 /HPF (0-2) Urine WBC Occ /HPF (0-4) Urine Squamous Epithelial Cells Occ /LPF Urine Bacteria 0 /HPF (0-FEW) Urine Mucus Mod /LPF Laboratory Tests Test 08/17/16 16:00 08/17/16 16:30 Nasal Screen MRSA (PCR) Negative (Negative) Urine Color Yellow Urine Clarity Clear Urine pH 7.0 Urine Specific [place] 1.020 Urine Protein Negative mg/dL (NEG-TRACE) Urine Glucose (UA) Negative mg/dL (NEG) Urine Ketones (Stick) Negative mg/dL (NEG) Urine Blood Negative (NEG) Urine Nitrite Negative (NEG) Urine Bilirubin Negative (NEG) Urine Urobilinogen Dipstick 0.2 mg/dL (0.2 mg/dL) Urine Leukocyte Esterase Negative (NEG) Urine RBC 0 /HPF (0-2) Urine WBC Occ /HPF (0-4) Urine Squamous Epithelial Cells Occ /LPF Urine Bacteria 0 /HPF (0-FEW) Urine Mucus Mod /LPF Medications Current Medications Ondansetron HCl (Zofran) 4 mg PRN Q8HRS PRN IV NAUSEA/VOMITING Last administered on 08/17/16 11:25; Start 08/17/16 at 10:45; Stop 08/18/16 at 10:44 ; Status DC Fentanyl Citrate (Fentanyl 2ml Vial) 50 mcg PRN Q1HR PRN IV PAIN Last administered on 08/18/16 06:00; Start 08/17/16 at 10:45; Stop 08/18/16 at 10:44 ; Status DC Clindamycin Phosphate 50 ml @ 100 mls/hr 1X ONCE IV ; Start 08/17/16 at 13:15 ; Stop 08/17/16 at 13:44; Status Cancel Oxycodone/ Acetaminophen (Percocet 7.5/ 325) 1 tab PRN Q4HRS PRN PO PAIN Last administered on 08/17/16 19:43; Start 08/17/16 at 15:15 Levothyroxine Sodium (Synthroid) 150 mcg DAILY07 PO ; Start 08/18/16 at 07:00; Stop 08/18/16 at 07:00; Status DC Amlodipine Besylate (Norvasc) 2.5 mg DAILY PO ; Start 08/17/16 at 16:00; Stop at 16:27; Status DC Allopurinol (Zyloprim) 100 mg DAILY PO ; Start 08/17/16 at 16:00; Stop 08/17/16 at 16:25; Status DC Allopurinol (Zyloprim) 100 mg DAILY PO Last administered on 08/18/16 12:23; Start 08/17/16 at 17:00 Amlodipine Besylate (Norvasc) 2.5 mg DAILY PO Last administered on 08/18/16 12 :22; Start 08/17/16 at 17:00 Levothyroxine Sodium (Synthroid) 150 mcg DAILY07 PO Last administered on 12:31; Start 08/18/16 at 07:00 Trazodone HCl (Desyrel) 75 mg QHS PO Last administered on 08/17/16 22:23; Start 08/17/16 at 21:00 Citalopram Hydrobromide (CeleXA) 40 mg DAILY PO Last administered on 08/18/16 12:23; Start 08/17/16 at 17:00 Fentanyl Citrate (Fentanyl 2ml Vial) 25 mcg PRN Q5MIN PRN IV MILD PAIN; Start 08/18/16 at 07:00; Stop 08/19/16 at 06:59 Fentanyl Citrate (Fentanyl 2ml Vial) 50 mcg PRN Q5MIN PRN IV MODERATE PAIN Last administered on 08/18/16 09:16; Start 08/18/16 at 07:00; Stop 08/19/16 at 06:59 Morphine Sulfate 1 mg PRN Q10MIN PRN IV SEVERE PAIN; Start 08/18/16 at 07:00; Stop 08/19/16 at 06:59 Ringer's Solution 1,000 ml @ 30 mls/hr Q24H IV Last administered on 08/18/16t 07:36; Start 08/18/16 at 07:00; Stop 08/18/16 at 18:59 Lidocaine HCl 2 ml PRN 1X PRN ID PRIOR TO IV START; Start 08/18/16 at 07:00; Stop 08/19/16 at 06:59 Hydromorphone HCl (Dilaudid) 0.5 mg PRN Q10MIN PRN IV SEV PAIN, Second choice; Start 08/18/16 at 07:00; Stop 08/19/16 at 06:59 Prochlorperazine Edisylate (Compazine) 5 mg PACU PRN PRN IV NAUSEA, MRX1; Start 08/18/16 at 07:00; Stop 08/19/16 at 06:59 Clindamycin Phosphate 50 ml @ 100 mls/hr 1X ONCE IV Last administered on 08/18t 07:48; Start 08/18/16 at 07:30; Stop 08/18/16 at 07:59; Status DC Bupivacaine HCl (Sensorcaine Mpf 0.5%) 30 ml STK-MED ONCE .ROUTE ; Start at 06:29; Stop 08/18/16 at 06:30; Status DC Lidocaine HCl 20 ml STK-MED ONCE .ROUTE ; Start 08/18/16 at 06:29; Stop at 06:30; Status DC Dexamethasone Sodium Phosphate (Decadron) 20 mg STK-MED ONCE .ROUTE ; Start at 06:49; Stop 08/18/16 at 06:50; Status DC Ondansetron HCl (Zofran) 4 mg STK-MED ONCE .ROUTE ; Start 08/18/16 at 06:49; Stop 08/18/16 at 06:50; Status DC Propofol 20 ml @ As Directed STK-MED ONCE IV ; Start 08/18/16 at 06:49; Stop at 06:50; Status DC Lidocaine HCl (Lidocaine Pf 2% Vial) 5 ml STK-MED ONCE .ROUTE ; Start 08/18/16 at 06:49; Stop 08/18/16 at 06:50; Status DC Sevoflurane (Ultane) 60 ml STK-MED ONCE IH ; Start 08/18/16 at 06:49; Stop 08/18 at 06:50; Status DC Fentanyl Citrate (Fentanyl 2ml Vial) 100 mcg STK-MED ONCE .ROUTE ; Start at 06:50; Stop 08/18/16 at 06:51; Status DC Ketorolac Tromethamine (Toradol For Or Only) 60 mg STK-MED ONCE .ROUTE ; Start 08/18/16 at 06:50; Stop 08/18/16 at 06:51; Status DC Clindamycin Phosphate 50 ml @ 100 mls/hr Q8H IV ; Start 08/18/16 at 16:00 Morphine Sulfate 5 mg/Ketorolac Tromethamine 30 mg/Ropivacaine 60 ml/ Epinephrine HCl 0.5 mg/Sodium Chloride 100 ml @ 100 mls/hr 1X PERIOP ONCE INT ART Last administered on 08/18/16t 08:13; Start 08/18/16 at 07:45; Stop at 08:44; Status DC Ephedrine Sulfate 50 mg STK-MED ONCE IV ; Start 08/18/16 at 07:50; Stop at 07:51; Status DC Active Scripts Active Reported Allopurinol 100 Mg Tablet 1 Tab PO DAILY Levothyroxine Sodium 150 Mcg Tablet 1 Tab PO DAILY Amlodipine Besylate 2.5 Mg Tablet 2.5 Mg PO DAILY Trazodone Hcl 50 Mg Tablet 1.5 Tab PO QHS Benazepril Hcl 20 Mg Tablet 1 Tab PO DAILY Hydrochlorothiazide Capsule (Hydrochlorothiazide) 12.5 Mg Capsule 1 Cap PO DAILY Citalopram Hbr (Citalopram Hydrobromide) 40 Mg Tablet 1 Tab PO DAILY Vitals/I & O Vital Sign - Last 24 Hours 08/17/16 08/17/16 08/17/16 08/17/16 19:15 19:43 20:00 20:43 Temp 98.3 98.3 Pulse 64 Resp 18 16 16 B/P (MAP) 123/59 (80) Pulse Ox 94 O2 Delivery Room Air Room Air Room Air Room Air 08/17/16 08/18/16 08/18/16 08/18/16 23:12 03:03 06:00 06:32 Temp 98.3 97.6 98.3 97.6 Pulse 64 72 Resp 16 18 16 14 B/P (MAP) 113/63 (80) 129/65 (86) Pulse Ox 93 95 O2 Delivery Room Air Room Air Room Air Room Air 08/18/16 08/18/16 08/18/16 08/18/16 07:18 08:58 09:04 09:13 Temp 75 98.1 75.0 98.1 Pulse 96 90 Resp 20 16 16 14 B/P (MAP) 142/64 158/63 138/56 Pulse Ox 94 97 99 95 O2 Delivery Room Air Simple Mask Simple Mask Simple Mask O2 Flow Rate 10 10.0 10 08/18/16 08/18/16 08/18/16 08/18/16 09:16 09:23 09:28 09:43 Temp 97.3 97.3 Pulse 93 90 Resp 18 16 20 B/P (MAP) 125/57 134/55 Pulse Ox 95 95 96 O2 Delivery Simple Mask Nasal Cannula Nasal Cannula Nasal Cannula O2 Flow Rate 10.0 2 3 2 08/18/16 08/18/16 08/18/16 08/18/16 09:49 09:58 11:04 12:22 Temp 97.6 97.6 Pulse 84 82 82 Resp 14 14 B/P (MAP) 133/61 133/62 (85) 133/62 Pulse Ox 96 90 O2 Delivery Nasal Cannula Nasal Cannula Room Air O2 Flow Rate 2 2 Intake and Output 08/17/16 08/17/16 08/18/16 15:00 23:00 07:00 Intake Total 0 ml Output Total 800 ml 750 ml Balance -800 ml -750 ml ANIKA FOFANA MD August 18, 2016 15:38
[2016-08-18] MEDS: CLINDAMYCIN 900MG PREMIX 50 ML IV SCH ×2 (16:10→23:54)
[2016-08-18] MEDS ORDERED: WARFARIN 5 MG TABLET. PO ONE (17:00)
[2016-08-18] MEDS: traZODone 50 MG TABLET. PO SCH (20:57)
[2016-08-19 03:45] VITALS: BP 127/63
[2016-08-19] MEDS: LEVOTHYROXINE 150 MCG TABLET PO SCH (06:20)
[2016-08-19 07:00] VITALS: BP 132/60
--- NOTE | 2016-08-19 08:35 | PDOC ---
PROGRESS NOTES Chief Complaint Chief Complaint hip fracture, hip pain htn gout, obesity, BMI 31 hypothyroid leukocytosis, reactive, History of Present Illness History of Present Illness s/p OR pain much better feels well, less distress talkative and doing OK discussed shirin Carlson Vitals Vitals Vital Signs Date Time Temp Pulse Resp B/P (MAP) Pulse Ox O2 Delivery O2 Flow Rate FiO2 08/19/16 07:00 98.5 71 18 132/60 (84) 91 Room Air 98.5 08/18/16 09:58 2 Physical Exam General: Alert, Oriented X3, Cooperative, No acute distress Abdomen: Normal bowel sounds, Soft Extremities: No clubbing, No edema, Normal pulses Skin: No rashes, No significant lesion Review of Systems Review of Systems insomnia, hip pain no n/v/d eating well Assessment and Plan Assessmemt and Plan Problems Medical Problems: (1) Hip fracture, intertrochanteric Status: Acute Problems: Comment Review of Relevant I have reviewed the following items viola (where applicable) has been applied. Labs Laboratory Tests Test 08/17/16 11:00 08/17/16 12:20 08/17/16 16:00 08/17/16 16:30 Prothrombin Time 13.5 SEC (11.7-14.0) Prothromb Time International Ratio 1.1 (0.8-1.1) Activated Partial Thromboplast Time 26 SEC (24-38) Sodium Level 138 mmol/L (136-145) Potassium Level 4.0 mmol/L (3.5-5.1) Chloride Level 102 mmol/L (98-107) Carbon Dioxide Level 25 mmol/L (21-32) Anion Gap 11 (6-14) Blood Urea Nitrogen 26 mg/dL (7-20) Creatinine 1.0 mg/dL (0.6-1.0) Estimated GFR (Cockcroft-Gault) 54.2 BUN/Creatinine Ratio 26 (6-20) Glucose Level 132 mg/dL (70-99) Calcium Level 8.6 mg/dL (8.5-10.1) Total Bilirubin 0.5 mg/dL (0.2-1.0) Aspartate Amino Transf (AST/SGOT) 56 U/L (15-37) Alanine Aminotransferase (ALT/SGPT) 65 U/L (14-59) Alkaline Phosphatase 77 U/L (46-116) Total Protein 6.9 g/dL (6.4-8.2) Albumin 3.4 g/dL (3.4-5.0) Albumin/Globulin Ratio 1.0 (1.0-1.7) White Blood Count 15.2 x10^3/uL (4.0-11.0) Red Blood Count 4.37 x10^6/uL (3.50-5.40) Hemoglobin 12.8 g/dL (12.0-15.5) Hematocrit 38.3 % (36.0-47.0) Mean Corpuscular Volume 88 fL (79-100) Mean Corpuscular Hemoglobin 29 pg (25-35) Mean Corpuscular Hemoglobin Concent 34 g/dL (31-37) Red Cell Distribution Width 15.3 % (11.5-14.5) Platelet Count 212 x10^3/uL (140-400) Neutrophils (%) (Auto) 81 % (31-73) Lymphocytes (%) (Auto) 12 % (24-48) Monocytes (%) (Auto) 6 % (0-9) Eosinophils (%) (Auto) 1 % (0-3) Basophils (%) (Auto) 0 % (0-3) Neutrophils # (Auto) 12.3 x10^3uL (1.8-7.7) Lymphocytes # (Auto) 1.8 x10^3/uL (1.0-4.8) Monocytes # (Auto) 0.9 x10^3/uL (0.0-1.1) Eosinophils # (Auto) 0.2 x10^3/uL (0.0-0.7) Basophils # (Auto) 0.0 x10^3/uL (0.0-0.2) Nasal Screen MRSA (PCR) Negative (Negative) Urine Color Yellow Urine Clarity Clear Urine pH 7.0 Urine Specific [place] 1.020 Urine Protein Negative mg/dL (NEG-TRACE) Urine Glucose (UA) Negative mg/dL (NEG) Urine Ketones (Stick) Negative mg/dL (NEG) Urine Blood Negative (NEG) Urine Nitrite Negative (NEG) Urine Bilirubin Negative (NEG) Urine Urobilinogen Dipstick 0.2 mg/dL (0.2 mg/dL) Urine Leukocyte Esterase Negative (NEG) Urine RBC 0 /HPF (0-2) Urine WBC Occ /HPF (0-4) Urine Squamous Epithelial Cells Occ /LPF Urine Bacteria 0 /HPF (0-FEW) Urine Mucus Mod /LPF Medications Current Medications Ondansetron HCl (Zofran) 4 mg PRN Q8HRS PRN IV NAUSEA/VOMITING Last administered on 08/17/16 11:25; Start 08/17/16 at 10:45; Stop 08/18/16 at 10:44 ; Status DC Fentanyl Citrate (Fentanyl 2ml Vial) 50 mcg PRN Q1HR PRN IV PAIN Last administered on 08/18/16 06:00; Start 08/17/16 at 10:45; Stop 08/18/16 at 10:44 ; Status DC Clindamycin Phosphate 50 ml @ 100 mls/hr 1X ONCE IV ; Start 08/17/16 at 13:15 ; Stop 08/17/16 at 13:44; Status Cancel Oxycodone/ Acetaminophen (Percocet 7.5/ 325) 1 tab PRN Q4HRS PRN PO PAIN Last administered on 08/17/16 19:43; Start 08/17/16 at 15:15 Levothyroxine Sodium (Synthroid) 150 mcg DAILY07 PO ; Start 08/18/16 at 07:00; Stop 08/18/16 at 07:00; Status DC Amlodipine Besylate (Norvasc) 2.5 mg DAILY PO ; Start 08/17/16 at 16:00; Stop at 16:27; Status DC Allopurinol (Zyloprim) 100 mg DAILY PO ; Start 08/17/16 at 16:00; Stop 08/17/16 at 16:25; Status DC Allopurinol (Zyloprim) 100 mg DAILY PO Last administered on 08/18/16 12:23; Start 08/17/16 at 17:00 Amlodipine Besylate (Norvasc) 2.5 mg DAILY PO Last administered on 08/18/16 12 :22; Start 08/17/16 at 17:00 Levothyroxine Sodium (Synthroid) 150 mcg DAILY07 PO Last administered on 06:20; Start 08/18/16 at 07:00 Trazodone HCl (Desyrel) 75 mg QHS PO Last administered on 08/18/16 20:57; Start 08/17/16 at 21:00 Citalopram Hydrobromide (CeleXA) 40 mg DAILY PO Last administered on 08/18/16 12:23; Start 08/17/16 at 17:00 Fentanyl Citrate (Fentanyl 2ml Vial) 25 mcg PRN Q5MIN PRN IV MILD PAIN; Start 08/18/16 at 07:00; Stop 08/19/16 at 06:59; Status DC Fentanyl Citrate (Fentanyl 2ml Vial) 50 mcg PRN Q5MIN PRN IV MODERATE PAIN Last administered on 08/18/16 09:16; Start 08/18/16 at 07:00; Stop 08/19/16 at 06:59; Status DC Morphine Sulfate 1 mg PRN Q10MIN PRN IV SEVERE PAIN; Start 08/18/16 at 07:00; Stop 08/19/16 at 06:59; Status DC Ringer's Solution 1,000 ml @ 30 mls/hr Q24H IV Last administered on 08/18/16 07:36; Start 08/18/16 at 07:00; Stop 08/18/16 at 18:59; Status DC Lidocaine HCl 2 ml PRN 1X PRN ID PRIOR TO IV START; Start 08/18/16 at 07:00; Stop 08/19/16 at 06:59; Status DC Hydromorphone HCl (Dilaudid) 0.5 mg PRN Q10MIN PRN IV SEV PAIN, Second choice; Start 08/18/16 at 07:00; Stop 08/19/16 at 06:59; Status DC Prochlorperazine Edisylate (Compazine) 5 mg PACU PRN PRN IV NAUSEA, MRX1; Start 08/18/16 at 07:00; Stop 08/19/16 at 06:59; Status DC Clindamycin Phosphate 50 ml @ 100 mls/hr 1X ONCE IV Last administered on 08/18 07:48; Start 08/18/16 at 07:30; Stop 08/18/16 at 07:59; Status DC Bupivacaine HCl (Sensorcaine Mpf 0.5%) 30 ml STK-MED ONCE .ROUTE ; Start at 06:29; Stop 08/18/16 at 06:30; Status DC Lidocaine HCl 20 ml STK-MED ONCE .ROUTE ; Start 08/18/16 at 06:29; Stop at 06:30; Status DC Dexamethasone Sodium Phosphate (Decadron) 20 mg STK-MED ONCE .ROUTE ; Start at 06:49; Stop 08/18/16 at 06:50; Status DC Ondansetron HCl (Zofran) 4 mg STK-MED ONCE .ROUTE ; Start 08/18/16 at 06:49; Stop 08/18/16 at 06:50; Status DC Propofol 20 ml @ As Directed STK-MED ONCE IV ; Start 08/18/16 at 06:49; Stop at 06:50; Status DC Lidocaine HCl (Lidocaine Pf 2% Vial) 5 ml STK-MED ONCE .ROUTE ; Start 08/18/16 at 06:49; Stop 08/18/16 at 06:50; Status DC Sevoflurane (Ultane) 60 ml STK-MED ONCE IH ; Start 08/18/16 at 06:49; Stop 08/18 at 06:50; Status DC Fentanyl Citrate (Fentanyl 2ml Vial) 100 mcg STK-MED ONCE .ROUTE ; Start at 06:50; Stop 08/18/16 at 06:51; Status DC Ketorolac Tromethamine (Toradol For Or Only) 60 mg STK-MED ONCE .ROUTE ; Start 08/18/16 at 06:50; Stop 08/18/16 at 06:51; Status DC Clindamycin Phosphate 50 ml @ 100 mls/hr Q8H IV Last administered on t 23:54; Start 08/18/16 at 16:00; Stop 08/19/16 at 08:29 Morphine Sulfate 5 mg/Ketorolac Tromethamine 30 mg/Ropivacaine 60 ml/ Epinephrine HCl 0.5 mg/Sodium Chloride 100 ml @ 100 mls/hr 1X PERIOP ONCE INT ART Last administered on 08/18/16t 08:13; Start 08/18/16 at 07:45; Stop at 08:44; Status DC Ephedrine Sulfate 50 mg STK-MED ONCE IV ; Start 08/18/16 at 07:50; Stop at 07:51; Status DC Warfarin Sodium (Coumadin) 5 mg 1X ONCE PO Last administered on 08/18/16t 17: 38; Start 08/18/16 at 17:00; Stop 08/18/16 at 17:01; Status DC Warfarin Sodium (Coumadin Per Pharmacy) 1 each PRN DAILY PRN [facility] SEE COMMENTS; Start 08/18/16 at 16:15 Active Scripts Active Reported Allopurinol 100 Mg Tablet 1 Tab PO DAILY Levothyroxine Sodium 150 Mcg Tablet 1 Tab PO DAILY Amlodipine Besylate 2.5 Mg Tablet 2.5 Mg PO DAILY Trazodone Hcl 50 Mg Tablet 1.5 Tab PO QHS Benazepril Hcl 20 Mg Tablet 1 Tab PO DAILY Hydrochlorothiazide Capsule (Hydrochlorothiazide) 12.5 Mg Capsule 1 Cap PO DAILY Citalopram Hbr (Citalopram Hydrobromide) 40 Mg Tablet 1 Tab PO DAILY Vitals/I & O Vital Sign - Last 24 Hours 08/18/16 08/18/16 08/18/16 08/18/16 08:58 09:04 09:13 09:16 Temp 98.1 98.1 Pulse 96 90 Resp 16 16 14 18 B/P (MAP) 158/63 138/56 Pulse Ox 97 99 95 95 O2 Delivery Simple Mask Simple Mask Simple Mask Simple Mask O2 Flow Rate 10 10.0 10 10.0 08/18/16 08/18/16 08/18/16 08/18/16 09:23 09:28 09:43 09:49 Temp 97.3 97.3 Pulse 93 90 Resp 16 20 B/P (MAP) 125/57 134/55 Pulse Ox 95 96 O2 Delivery Nasal Cannula Nasal Cannula Nasal Cannula Nasal Cannula O2 Flow Rate 2 3 2 2 08/18/16 08/18/16 08/18/16 08/18/16 09:58 11:04 11:16 11:31 Temp 97.6 97.6 Pulse 84 82 84 84 Resp 14 14 14 14 B/P (MAP) 133/61 133/62 (85) 125/86 (99) 124/70 (88) Pulse Ox 96 90 89 89 O2 Delivery Nasal Cannula Room Air Room Air Room Air O2 Flow Rate 2 08/18/16 08/18/16 08/18/16 08/18/16 11:46 12:01 12:22 12:32 Pulse 79 81 82 86 Resp 14 14 14 B/P (MAP) 118/59 (78) 127/59 (81) 133/62 89/45 (60) Pulse Ox 87 89 O2 Delivery Room Air Room Air Room Air 08/18/16 08/18/16 08/18/16 08/18/16 13:02 14:58 15:00 19:50 Pulse 86 87 89 Resp 14 14 B/P (MAP) 126/62 (83) 107/70 (82) 148/64 (92) Pulse Ox 90 O2 Delivery Room Air Room Air Room Air 08/18/16 08/18/16 08/19/16 08/19/16 19:55 23:22 03:45 07:00 Temp 98.0 98.1 98.3 98.5 98.0 98.1 98.3 98.5 Pulse 93 78 72 71 Resp 18 18 18 18 B/P (MAP) 121/56 (77) 128/54 (78) 127/63 (84) 132/60 (84) Pulse Ox 92 92 90 91 O2 Delivery Room Air Room Air Room Air Room Air Intake and Output 08/18/16 08/18/16 08/19/16 15:00 23:00 07:00 Intake Total 1290 ml 480 ml Output Total 450 ml 1150 ml 2050 ml Balance 840 ml -1150 ml -1570 ml ANIKA FOFANA MD August 19, 2016 08:35
[2016-08-19] MEDS ORDERED: ZOLPIDEM 5 MG TABLET. PO PRN (08:45)
[2016-08-19] MEDS: CLINDAMYCIN 900MG PREMIX 50 ML IV SCH (08:52)
[2016-08-19] MEDS: DOCUSATE SODIUM 100 MG CAPSULE. PO SCH (08:53)
[2016-08-19] MEDS: amLODIPine BESYLATE 2.5 MG TABLET PO SCH (08:53)
[2016-08-19] MEDS: POLYETHYLENE GLYCOL 3350 17 GM PACKET. PO SCH (08:53)
[2016-08-19] MEDS: ALLOPURINOL 100 MG TABLET. PO SCH (08:53)
[2016-08-19] MEDS: CITALOPRAM 20 MG TABLET. PO SCH (08:53)
[2016-08-19 10:42] VITALS: BP 130/56
--- NOTE | 2016-08-19 13:59 | PDOC ---
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 Pain is well-controlled. She's been working with therapy and has been able to ambulate with the walker. She is from out of town and has some anxiety about how she is going to get home. She plans to go to [facility] if covered by insurance, and then fly home. Post-op Day: 1 (Right hip IM nail) Vitals Vital Signs Date Time Temp Pulse Resp B/P (MAP) Pulse Ox O2 Delivery O2 Flow Rate FiO2 08/19/16 10:42 98.7 72 18 130/56 (80) 91 Room Air 98.7 08/18/16 09:58 2 Labs Laboratory Tests Test 08/17/16 16:00 08/17/16 16:30 Nasal Screen MRSA (PCR) Negative (Negative) Urine Color Yellow Urine Clarity Clear Urine pH 7.0 Urine Specific [place] 1.020 Urine Protein Negative mg/dL (NEG-TRACE) Urine Glucose (UA) Negative mg/dL (NEG) Urine Ketones (Stick) Negative mg/dL (NEG) Urine Blood Negative (NEG) Urine Nitrite Negative (NEG) Urine Bilirubin Negative (NEG) Urine Urobilinogen Dipstick 0.2 mg/dL (0.2 mg/dL) Urine Leukocyte Esterase Negative (NEG) Urine RBC 0 /HPF (0-2) Urine WBC Occ /HPF (0-4) Urine Squamous Epithelial Cells Occ /LPF Urine Bacteria 0 /HPF (0-FEW) Urine Mucus Mod /LPF Notes Patient is awake and alert sitting up in chair. Breathing unlabored, no acute distress. Incision is well approximated with slight drainage noted on the dressing. Neurovascular intact right lower extremity. 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
[2016-08-19 14:56] VITALS: BP 116/66
[2016-08-19] MEDS ORDERED: WARFARIN 5 MG TABLET. PO ONE (16:00)
[2016-08-19] MEDS: ENOXAPARIN 40 MG/0.4 ML SYRINGE. SQ SCH (16:22)
[2016-08-19] MEDS: oxyCODONE/APAP 7.5/325 1 TAB TABLET PO PRN (16:22)
[2016-08-19 19:00] VITALS: BP 109/55
[2016-08-19] MEDS: traZODone 50 MG TABLET. PO SCH (20:57)
[2016-08-19 23:23] VITALS: BP 136/74
[2016-08-20 03:05] VITALS: BP 129/61
[2016-08-20] MEDS: LEVOTHYROXINE 150 MCG TABLET PO SCH (06:34)
[2016-08-20 07:00] VITALS: BP 119/58
[2016-08-20] MEDS: oxyCODONE/APAP 7.5/325 1 TAB TABLET PO PRN ×2 (08:43→21:21)
[2016-08-20] MEDS: ALLOPURINOL 100 MG TABLET. PO SCH (08:43)
[2016-08-20] MEDS: amLODIPine BESYLATE 2.5 MG TABLET PO SCH (08:43)
[2016-08-20] MEDS: DOCUSATE SODIUM 100 MG CAPSULE. PO SCH (08:43)
[2016-08-20] MEDS: CITALOPRAM 20 MG TABLET. PO SCH (08:43)
[2016-08-20] MEDS: POLYETHYLENE GLYCOL 3350 17 GM PACKET. PO SCH (08:44)
--- NOTE | 2016-08-20 09:03 | PDOC ---
ORTHO PROGRESS NOTES Subjective Pain is tolerable, progressing with therapy. Vitals Vital Signs Date Time Temp Pulse Resp B/P (MAP) Pulse Ox O2 Delivery O2 Flow Rate FiO2 08/20/16 08:43 77 119/58 08/20/16 07:00 96.6 20 90 96.6 08/20/16 03:05 Room Air Notes A and A in chair remains NVI RLE incision ok Assessment and Plan She is progressing appropriately. She can weight-bear as tolerated. I am okay with her transferring to a rehabilitation facility. Coumadin 1 month LUISA BAILON II, MD August 20, 2016 09:03
[2016-08-20] MEDS ORDERED: MAGNESIUM HYDROXIDE 2,400 MG/30 ML ORAL.SUSP. PO ONE (10:30)
[2016-08-20 11:00] VITALS: BP 124/61
[2016-08-20 11:14] LABS: INR 1.4 (0.8-1.1); PROTHROMBIN TIME PATIENT 16.1 SEC (11.7-14.0)
--- NOTE | 2016-08-20 12:43 | PDOC3 ---
Discharge Summary Visit Information Date of Admission: August 17, 2016 Date of Discharge: August 20, 2016 Admitting Diagnosis: hip facture Final Diagnosis hip fracture, hip pain htn gout, obesity, BMI 31 hypothyroid leukocytosis, reactive, Problems Medical Problems: (1) Hip fracture, intertrochanteric Status: Acute Brief Hospital Course Allergies Allergies Coded Allergies Type Severity Reaction Last Updated Verified Latex, Natural Rubber Allergy Intermediate LOCALIZED REDDNESS AND SWELLING Yes Penicillins Allergy Intermediate 08/18/16 No Vital Signs Vital Signs Date Time Temp Pulse Resp B/P (MAP) Pulse Ox O2 Delivery O2 Flow Rate FiO2 08/20/16 11:00 95.4 82 20 124/61 (82) 94 Room Air 95.4 Lab Results Laboratory Tests Test 08/20/16 10:40 Prothrombin Time 16.1 SEC (11.7-14.0) Prothromb Time International Ratio 1.4 (0.8-1.1) Laboratory Tests Test 08/20/16 10:40 Prothrombin Time 16.1 SEC (11.7-14.0) Prothromb Time International Ratio 1.4 (0.8-1.1) Brief Hospital Course Ms. Almendarez is a 75 old fell on stairs, after run into by a dog. traumatic fracture s/p OR nail on right hip, then pain much better discussed wi aislinn Goddard in clinic Discharge Information Condition at Discharge: Improved Follow Up: Weeks Disposition/Orders: D/C to Another Facility ([facility]) Scheduled Allopurinol (Allopurinol), 1 TAB PO DAILY, (Reported) Amlodipine Besylate (Amlodipine Besylate), 2.5 MG PO DAILY, (Reported) Benazepril Hcl (Benazepril Hcl), 1 TAB PO DAILY, (Reported) Citalopram Hydrobromide (Citalopram Hbr), 1 TAB PO DAILY, (Reported) Hydrochlorothiazide (Hydrochlorothiazide Capsule ), 1 CAP PO DAILY, (Reported ) Levothyroxine Sodium (Levothyroxine Sodium), 1 TAB PO DAILY, (Reported) Trazodone Hcl (Trazodone Hcl), 1.5 TAB PO QHS, (Reported) Patient Instructions Patient Instructions to skilled, Prov Place time > 30 min ANIKA FOFANA MD August 20, 2016 12:43
[2016-08-20 15:00] VITALS: BP 117/64
[2016-08-20] MEDS ORDERED: WARFARIN 4 MG TABLET. PO ONE (16:00)
[2016-08-20] MEDS: ENOXAPARIN 40 MG/0.4 ML SYRINGE. SQ SCH (16:52)
[2016-08-20 19:20] VITALS: BP 127/83
[2016-08-20] MEDS: traZODone 50 MG TABLET. PO SCH (21:19)
[2016-08-20 23:10] VITALS: BP 119/60
[2016-08-21 03:30] VITALS: BP 119/63
[2016-08-21 04:25] LABS: INR 1.6 (0.8-1.1); PROTHROMBIN TIME PATIENT 17.9 SEC (11.7-14.0)
[2016-08-21 07:00] VITALS: BP 141/67
[2016-08-21] MEDS: LEVOTHYROXINE 150 MCG TABLET PO SCH (07:30)
--- NOTE | 2016-08-21 09:04 | PDOC ---
PROGRESS NOTES Chief Complaint Chief Complaint LATE entry, pt seen 08/20, tried to DC hip fracture, hip pain htn gout, obesity, BMI 31 hypothyroid leukocytosis, reactive, History of Present Illness History of Present Illness s/p OR pain much better feels well, less distress talkative and doing OK discussed shirin Carlson Vitals Vitals Vital Signs Date Time Temp Pulse Resp B/P (MAP) Pulse Ox O2 Delivery O2 Flow Rate FiO2 08/21/16 07:00 97.5 65 20 141/67 (91) 99 Room Air 97.5 Physical Exam General: Alert, Oriented X3, Cooperative, No acute distress Abdomen: Normal bowel sounds, Soft Extremities: No clubbing, No edema, Normal pulses Skin: No rashes, No significant lesion Labs LABS Laboratory Tests Test 08/20/16 10:40 08/21/16 03:47 Prothrombin Time 16.1 SEC (11.7-14.0) 17.9 SEC (11.7-14.0) Prothromb Time International Ratio 1.4 (0.8-1.1) 1.6 (0.8-1.1) Assessment and Plan Assessmemt and Plan Problems Medical Problems: (1) Hip fracture, intertrochanteric Status: Acute Problems: Comment Review of Relevant I have reviewed the following items viola (where applicable) has been applied. Labs Laboratory Tests Test 08/20/16 10:40 08/21/16 03:47 Prothrombin Time 16.1 SEC (11.7-14.0) 17.9 SEC (11.7-14.0) Prothromb Time International Ratio 1.4 (0.8-1.1) 1.6 (0.8-1.1) Laboratory Tests Test 08/20/16 10:40 08/21/16 03:47 Prothrombin Time 16.1 SEC (11.7-14.0) 17.9 SEC (11.7-14.0) Prothromb Time International Ratio 1.4 (0.8-1.1) 1.6 (0.8-1.1) Medications Current Medications Ondansetron HCl (Zofran) 4 mg PRN Q8HRS PRN IV NAUSEA/VOMITING Last administered on 08/17/16t 11:25; Start 08/17/16 at 10:45; Stop 08/18/16 at 10:44 ; Status DC Fentanyl Citrate (Fentanyl 2ml Vial) 50 mcg PRN Q1HR PRN IV PAIN Last administered on 08/18/16 06:00; Start 08/17/16 at 10:45; Stop 08/18/16 at 10:44 ; Status DC Clindamycin Phosphate 50 ml @ 100 mls/hr 1X ONCE IV ; Start 08/17/16 at 13:15 ; Stop 08/17/16 at 13:44; Status Cancel Oxycodone/ Acetaminophen (Percocet 7.5/ 325) 1 tab PRN Q4HRS PRN PO PAIN Last administered on 08/20/16 21:21; Start 08/17/16 at 15:15 Levothyroxine Sodium (Synthroid) 150 mcg DAILY07 PO ; Start 08/18/16 at 07:00; Stop 08/18/16 at 07:00; Status DC Amlodipine Besylate (Norvasc) 2.5 mg DAILY PO ; Start 08/17/16 at 16:00; Stop at 16:27; Status DC Allopurinol (Zyloprim) 100 mg DAILY PO ; Start 08/17/16 at 16:00; Stop 08/17/16 at 16:25; Status DC Allopurinol (Zyloprim) 100 mg DAILY PO Last administered on 08/20/16 08:43; Start 08/17/16 at 17:00 Amlodipine Besylate (Norvasc) 2.5 mg DAILY PO Last administered on 08/20/16 08 :43; Start 08/17/16 at 17:00 Levothyroxine Sodium (Synthroid) 150 mcg DAILY07 PO Last administered on 07:30; Start 08/18/16 at 07:00 Trazodone HCl (Desyrel) 75 mg QHS PO Last administered on 08/20/16 21:19; Start 08/17/16 at 21:00 Citalopram Hydrobromide (CeleXA) 40 mg DAILY PO Last administered on 08/20/16 08:43; Start 08/17/16 at 17:00 Fentanyl Citrate (Fentanyl 2ml Vial) 25 mcg PRN Q5MIN PRN IV MILD PAIN; Start 08/18/16 at 07:00; Stop 08/19/16 at 06:59; Status DC Fentanyl Citrate (Fentanyl 2ml Vial) 50 mcg PRN Q5MIN PRN IV MODERATE PAIN Last administered on 08/18/16 09:16; Start 08/18/16 at 07:00; Stop 08/19/16 at 06:59; Status DC Morphine Sulfate 1 mg PRN Q10MIN PRN IV SEVERE PAIN; Start 08/18/16 at 07:00; Stop 08/19/16 at 06:59; Status DC Ringer's Solution 1,000 ml @ 30 mls/hr Q24H IV Last administered on 08/18/16 07:36; Start 08/18/16 at 07:00; Stop 08/18/16 at 18:59; Status DC Lidocaine HCl 2 ml PRN 1X PRN ID PRIOR TO IV START; Start 08/18/16 at 07:00; Stop 08/19/16 at 06:59; Status DC Hydromorphone HCl (Dilaudid) 0.5 mg PRN Q10MIN PRN IV SEV PAIN, Second choice; Start 08/18/16 at 07:00; Stop 08/19/16 at 06:59; Status DC Prochlorperazine Edisylate (Compazine) 5 mg PACU PRN PRN IV NAUSEA, MRX1; Start 08/18/16 at 07:00; Stop 08/19/16 at 06:59; Status DC Clindamycin Phosphate 50 ml @ 100 mls/hr 1X ONCE IV Last administered on 08/18 07:48; Start 08/18/16 at 07:30; Stop 08/18/16 at 07:59; Status DC Bupivacaine HCl (Sensorcaine Mpf 0.5%) 30 ml STK-MED ONCE .ROUTE ; Start at 06:29; Stop 08/18/16 at 06:30; Status DC Lidocaine HCl 20 ml STK-MED ONCE .ROUTE ; Start 08/18/16 at 06:29; Stop at 06:30; Status DC Dexamethasone Sodium Phosphate (Decadron) 20 mg STK-MED ONCE .ROUTE ; Start at 06:49; Stop 08/18/16 at 06:50; Status DC Ondansetron HCl (Zofran) 4 mg STK-MED ONCE .ROUTE ; Start 08/18/16 at 06:49; Stop 08/18/16 at 06:50; Status DC Propofol 20 ml @ As Directed STK-MED ONCE IV ; Start 08/18/16 at 06:49; Stop at 06:50; Status DC Lidocaine HCl (Lidocaine Pf 2% Vial) 5 ml STK-MED ONCE .ROUTE ; Start 08/18/16 at 06:49; Stop 08/18/16 at 06:50; Status DC Sevoflurane (Ultane) 60 ml STK-MED ONCE IH ; Start 08/18/16 at 06:49; Stop 08/18 at 06:50; Status DC Fentanyl Citrate (Fentanyl 2ml Vial) 100 mcg STK-MED ONCE .ROUTE ; Start at 06:50; Stop 08/18/16 at 06:51; Status DC Ketorolac Tromethamine (Toradol For Or Only) 60 mg STK-MED ONCE .ROUTE ; Start 08/18/16 at 06:50; Stop 08/18/16 at 06:51; Status DC Clindamycin Phosphate 50 ml @ 100 mls/hr Q8H IV Last administered on 08:52; Start 08/18/16 at 16:00; Stop 08/19/16 at 08:29; Status DC Morphine Sulfate 5 mg/Ketorolac Tromethamine 30 mg/Ropivacaine 60 ml/ Epinephrine HCl 0.5 mg/Sodium Chloride 100 ml @ 100 mls/hr 1X PERIOP ONCE INT ART Last administered on 08/18/16 08:13; Start 08/18/16 at 07:45; Stop at 08:44; Status DC Ephedrine Sulfate 50 mg STK-MED ONCE IV ; Start 08/18/16 at 07:50; Stop at 07:51; Status DC Warfarin Sodium (Coumadin) 5 mg 1X ONCE PO Last administered on 08/18/16 17: 38; Start 08/18/16 at 17:00; Stop 08/18/16 at 17:01; Status DC Warfarin Sodium (Coumadin Per Pharmacy) 1 each PRN DAILY PRN MC SEE COMMENTS Last administered on 08/20/16 12:38; Start 08/18/16 at 16:15 Enoxaparin Sodium (Lovenox Per Pharmacy Prophylaxis Dosing) 1 each PRN DAILY PRN MC SEE COMMENTS; Start 08/19/16 at 08:30 Zolpidem Tartrate (Ambien) 5 mg PRN QHS PRN PO INSOMNIA Last administered on 21:01; Start 08/19/16 at 08:45 Polyethylene Glycol (miraLAX PACKET) 17 gm DAILY PO Last administered on 08:44; Start 08/19/16 at 09:00 Docusate Sodium (Colace) 100 mg DAILY PO Last administered on 08/20/16 08:43; Start 08/19/16 at 09:00 Enoxaparin Sodium (Lovenox 40mg Syringe) 40 mg DAILY16 SQ Last administered on 08/20/16 16:52; Start 08/19/16 at 16:00 Warfarin Sodium (Coumadin) 5 mg 1X WARF ONCE PO Last administered on 16:21; Start 08/19/16 at 16:00; Stop 08/19/16 at 16:01; Status DC Magnesium Hydroxide (Milk Of Magnesia) 2,400 mg 1X ONCE PO Last administered on 08/20/16 11:40; Start 08/20/16 at 10:30; Stop 08/20/16 at 10:31; Status DC Warfarin Sodium (Coumadin) 4 mg 1X WARF ONCE PO Last administered on 16:52; Start 08/20/16 at 16:00; Stop 08/20/16 at 16:01; Status DC Active Scripts Active Reported Allopurinol 100 Mg Tablet 1 Tab PO DAILY Levothyroxine Sodium 150 Mcg Tablet 1 Tab PO DAILY Amlodipine Besylate 2.5 Mg Tablet 2.5 Mg PO DAILY Trazodone Hcl 50 Mg Tablet 1.5 Tab PO QHS Benazepril Hcl 20 Mg Tablet 1 Tab PO DAILY Hydrochlorothiazide Capsule (Hydrochlorothiazide) 12.5 Mg Capsule 1 Cap PO DAILY Citalopram Hbr (Citalopram Hydrobromide) 40 Mg Tablet 1 Tab PO DAILY Vitals/I & O Vital Sign - Last 24 Hours 08/20/16 08/20/16 08/20/16 08/20/16 11:00 15:00 19:20 20:00 Temp 95.4 98.9 98.2 95.4 98.9 98.2 Pulse 82 71 82 Resp 20 18 16 B/P (MAP) 124/61 (82) 117/64 (81) 127/83 (98) Pulse Ox 94 93 93 O2 Delivery Room Air Room Air Room Air Room Air 08/20/16 08/20/16 08/20/16 08/21/16 21:21 22:46 23:10 03:30 Temp 97.7 98.6 97.7 98.6 Pulse 80 68 Resp 18 18 16 18 B/P (MAP) 119/60 (79) 119/63 (81) Pulse Ox 93 94 O2 Delivery Room Air Room Air Room Air Room Air 08/21/16 07:00 Temp 97.5 97.5 Pulse 65 Resp 20 B/P (MAP) 141/67 (91) Pulse Ox 99 O2 Delivery Room Air Intake and Output 08/20/16 08/20/16 08/21/16 15:00 23:00 07:00 Intake Total 800 ml 400 ml Balance 800 ml 400 ml ANIKA FOFANA MD August 21, 2016 09:04
[2016-08-21] MEDS: DOCUSATE SODIUM 100 MG CAPSULE. PO SCH (09:10)
[2016-08-21] MEDS: POLYETHYLENE GLYCOL 3350 17 GM PACKET. PO SCH (09:10)
[2016-08-21] MEDS: CITALOPRAM 20 MG TABLET. PO SCH (09:10)
[2016-08-21] MEDS: amLODIPine BESYLATE 2.5 MG TABLET PO SCH (09:10)
[2016-08-21] MEDS: ALLOPURINOL 100 MG TABLET. PO SCH (09:10)
[2016-08-21] MEDS: oxyCODONE/APAP 7.5/325 1 TAB TABLET PO PRN ×2 (09:10→16:13)
--- NOTE | 2016-08-21 09:32 | PDOC ---
PROGRESS NOTES Chief Complaint Chief Complaint hip fracture, hip pain htn gout, obesity, BMI 31 hypothyroid leukocytosis, reactive, History of Present Illness History of Present Illness pain improving slowly will need more pt and OT feels well, less distress may be able to DC home in a few days Vitals Vitals Vital Signs Date Time Temp Pulse Resp B/P (MAP) Pulse Ox O2 Delivery O2 Flow Rate FiO2 08/21/16 09:10 65 141/67 08/21/16 07:00 97.5 20 99 Room Air 97.5 Physical Exam General: Alert, Oriented X3, Cooperative, No acute distress Heart: Regular rate, No murmurs Abdomen: Normal bowel sounds, Soft Extremities: No clubbing, No edema, Normal pulses Skin: No rashes, No significant lesion Labs LABS Laboratory Tests Test 08/20/16 10:40 08/21/16 03:47 Prothrombin Time 16.1 SEC (11.7-14.0) 17.9 SEC (11.7-14.0) Prothromb Time International Ratio 1.4 (0.8-1.1) 1.6 (0.8-1.1) Review of Systems Review of Systems no n,v,d Assessment and Plan Assessmemt and Plan Problems Medical Problems: (1) Hip fracture, intertrochanteric Status: Acute Problems: Comment Review of Relevant I have reviewed the following items viola (where applicable) has been applied. Labs Laboratory Tests Test 08/20/16 10:40 08/21/16 03:47 Prothrombin Time 16.1 SEC (11.7-14.0) 17.9 SEC (11.7-14.0) Prothromb Time International Ratio 1.4 (0.8-1.1) 1.6 (0.8-1.1) Laboratory Tests Test 08/20/16 10:40 08/21/16 03:47 Prothrombin Time 16.1 SEC (11.7-14.0) 17.9 SEC (11.7-14.0) Prothromb Time International Ratio 1.4 (0.8-1.1) 1.6 (0.8-1.1) Medications Current Medications Ondansetron HCl (Zofran) 4 mg PRN Q8HRS PRN IV NAUSEA/VOMITING Last administered on 08/17/16t 11:25; Start 08/17/16 at 10:45; Stop 08/18/16 at 10:44 ; Status DC Fentanyl Citrate (Fentanyl 2ml Vial) 50 mcg PRN Q1HR PRN IV PAIN Last administered on 08/18/16 06:00; Start 08/17/16 at 10:45; Stop 08/18/16 at 10:44 ; Status DC Clindamycin Phosphate 50 ml @ 100 mls/hr 1X ONCE IV ; Start 08/17/16 at 13:15 ; Stop 08/17/16 at 13:44; Status Cancel Oxycodone/ Acetaminophen (Percocet 7.5/ 325) 1 tab PRN Q4HRS PRN PO PAIN Last administered on 08/21/16 09:10; Start 08/17/16 at 15:15 Levothyroxine Sodium (Synthroid) 150 mcg DAILY07 PO ; Start 08/18/16 at 07:00; Stop 08/18/16 at 07:00; Status DC Amlodipine Besylate (Norvasc) 2.5 mg DAILY PO ; Start 08/17/16 at 16:00; Stop at 16:27; Status DC Allopurinol (Zyloprim) 100 mg DAILY PO ; Start 08/17/16 at 16:00; Stop 08/17/16 at 16:25; Status DC Allopurinol (Zyloprim) 100 mg DAILY PO Last administered on 08/21/16 09:10; Start 08/17/16 at 17:00 Amlodipine Besylate (Norvasc) 2.5 mg DAILY PO Last administered on 08/21/16 09 :10; Start 08/17/16 at 17:00 Levothyroxine Sodium (Synthroid) 150 mcg DAILY07 PO Last administered on 07:30; Start 08/18/16 at 07:00 Trazodone HCl (Desyrel) 75 mg QHS PO Last administered on 08/20/16 21:19; Start 08/17/16 at 21:00 Citalopram Hydrobromide (CeleXA) 40 mg DAILY PO Last administered on 08/21/16 09:10; Start 08/17/16 at 17:00 Fentanyl Citrate (Fentanyl 2ml Vial) 25 mcg PRN Q5MIN PRN IV MILD PAIN; Start 08/18/16 at 07:00; Stop 08/19/16 at 06:59; Status DC Fentanyl Citrate (Fentanyl 2ml Vial) 50 mcg PRN Q5MIN PRN IV MODERATE PAIN Last administered on 08/18/16 09:16; Start 08/18/16 at 07:00; Stop 08/19/16 at 06:59; Status DC Morphine Sulfate 1 mg PRN Q10MIN PRN IV SEVERE PAIN; Start 08/18/16 at 07:00; Stop 08/19/16 at 06:59; Status DC Ringer's Solution 1,000 ml @ 30 mls/hr Q24H IV Last administered on 08/18/16 07:36; Start 08/18/16 at 07:00; Stop 08/18/16 at 18:59; Status DC Lidocaine HCl 2 ml PRN 1X PRN ID PRIOR TO IV START; Start 08/18/16 at 07:00; Stop 08/19/16 at 06:59; Status DC Hydromorphone HCl (Dilaudid) 0.5 mg PRN Q10MIN PRN IV SEV PAIN, Second choice; Start 08/18/16 at 07:00; Stop 08/19/16 at 06:59; Status DC Prochlorperazine Edisylate (Compazine) 5 mg PACU PRN PRN IV NAUSEA, MRX1; Start 08/18/16 at 07:00; Stop 08/19/16 at 06:59; Status DC Clindamycin Phosphate 50 ml @ 100 mls/hr 1X ONCE IV Last administered on 08/18 07:48; Start 08/18/16 at 07:30; Stop 08/18/16 at 07:59; Status DC Bupivacaine HCl (Sensorcaine Mpf 0.5%) 30 ml STK-MED ONCE .ROUTE ; Start at 06:29; Stop 08/18/16 at 06:30; Status DC Lidocaine HCl 20 ml STK-MED ONCE .ROUTE ; Start 08/18/16 at 06:29; Stop at 06:30; Status DC Dexamethasone Sodium Phosphate (Decadron) 20 mg STK-MED ONCE .ROUTE ; Start at 06:49; Stop 08/18/16 at 06:50; Status DC Ondansetron HCl (Zofran) 4 mg STK-MED ONCE .ROUTE ; Start 08/18/16 at 06:49; Stop 08/18/16 at 06:50; Status DC Propofol 20 ml @ As Directed STK-MED ONCE IV ; Start 08/18/16 at 06:49; Stop at 06:50; Status DC Lidocaine HCl (Lidocaine Pf 2% Vial) 5 ml STK-MED ONCE .ROUTE ; Start 08/18/16 at 06:49; Stop 08/18/16 at 06:50; Status DC Sevoflurane (Ultane) 60 ml STK-MED ONCE IH ; Start 08/18/16 at 06:49; Stop 08/18 at 06:50; Status DC Fentanyl Citrate (Fentanyl 2ml Vial) 100 mcg STK-MED ONCE .ROUTE ; Start at 06:50; Stop 08/18/16 at 06:51; Status DC Ketorolac Tromethamine (Toradol For Or Only) 60 mg STK-MED ONCE .ROUTE ; Start 08/18/16 at 06:50; Stop 08/18/16 at 06:51; Status DC Clindamycin Phosphate 50 ml @ 100 mls/hr Q8H IV Last administered on 08:52; Start 08/18/16 at 16:00; Stop 08/19/16 at 08:29; Status DC Morphine Sulfate 5 mg/Ketorolac Tromethamine 30 mg/Ropivacaine 60 ml/ Epinephrine HCl 0.5 mg/Sodium Chloride 100 ml @ 100 mls/hr 1X PERIOP ONCE INT ART Last administered on 08/18/16 08:13; Start 08/18/16 at 07:45; Stop at 08:44; Status DC Ephedrine Sulfate 50 mg STK-MED ONCE IV ; Start 08/18/16 at 07:50; Stop at 07:51; Status DC Warfarin Sodium (Coumadin) 5 mg 1X ONCE PO Last administered on 08/18/16 17: 38; Start 08/18/16 at 17:00; Stop 08/18/16 at 17:01; Status DC Warfarin Sodium (Coumadin Per Pharmacy) 1 each PRN DAILY PRN MC SEE COMMENTS Last administered on 08/20/16 12:38; Start 08/18/16 at 16:15 Enoxaparin Sodium (Lovenox Per Pharmacy Prophylaxis Dosing) 1 each PRN DAILY PRN MC SEE COMMENTS; Start 08/19/16 at 08:30 Zolpidem Tartrate (Ambien) 5 mg PRN QHS PRN PO INSOMNIA Last administered on 21:01; Start 08/19/16 at 08:45 Polyethylene Glycol (miraLAX PACKET) 17 gm DAILY PO Last administered on 09:10; Start 08/19/16 at 09:00 Docusate Sodium (Colace) 100 mg DAILY PO Last administered on 08/21/16 09:10; Start 08/19/16 at 09:00 Enoxaparin Sodium (Lovenox 40mg Syringe) 40 mg DAILY16 SQ Last administered on 08/20/16 16:52; Start 08/19/16 at 16:00 Warfarin Sodium (Coumadin) 5 mg 1X WARF ONCE PO Last administered on 16:21; Start 08/19/16 at 16:00; Stop 08/19/16 at 16:01; Status DC Magnesium Hydroxide (Milk Of Magnesia) 2,400 mg 1X ONCE PO Last administered on 08/20/16 11:40; Start 08/20/16 at 10:30; Stop 08/20/16 at 10:31; Status DC Warfarin Sodium (Coumadin) 4 mg 1X WARF ONCE PO Last administered on 16:52; Start 08/20/16 at 16:00; Stop 08/20/16 at 16:01; Status DC Active Scripts Active Reported Allopurinol 100 Mg Tablet 1 Tab PO DAILY Levothyroxine Sodium 150 Mcg Tablet 1 Tab PO DAILY Amlodipine Besylate 2.5 Mg Tablet 2.5 Mg PO DAILY Trazodone Hcl 50 Mg Tablet 1.5 Tab PO QHS Benazepril Hcl 20 Mg Tablet 1 Tab PO DAILY Hydrochlorothiazide Capsule (Hydrochlorothiazide) 12.5 Mg Capsule 1 Cap PO DAILY Citalopram Hbr (Citalopram Hydrobromide) 40 Mg Tablet 1 Tab PO DAILY Vitals/I & O Vital Sign - Last 24 Hours 08/20/16 08/20/16 08/20/16 08/20/16 11:00 15:00 19:20 20:00 Temp 95.4 98.9 98.2 95.4 98.9 98.2 Pulse 82 71 82 Resp 20 18 16 B/P (MAP) 124/61 (82) 117/64 (81) 127/83 (98) Pulse Ox 94 93 93 O2 Delivery Room Air Room Air Room Air Room Air 08/20/16 08/20/16 08/20/16 08/21/16 21:21 22:46 23:10 03:30 Temp 97.7 98.6 97.7 98.6 Pulse 80 68 Resp 18 18 16 18 B/P (MAP) 119/60 (79) 119/63 (81) Pulse Ox 93 94 O2 Delivery Room Air Room Air Room Air Room Air 08/21/16 08/21/16 07:00 09:10 Temp 97.5 97.5 Pulse 65 65 Resp 20 B/P (MAP) 141/67 (91) 141/67 Pulse Ox 99 O2 Delivery Room Air Intake and Output 08/20/16 08/20/16 08/21/16 15:00 23:00 07:00 Intake Total 800 ml 400 ml Balance 800 ml 400 ml ANIKA FOFANA MD August 21, 2016 09:32
[2016-08-21 11:00] VITALS: BP 122/63
[2016-08-21 15:00] VITALS: BP 117/66
[2016-08-21] MEDS ORDERED: WARFARIN 4 MG TABLET. PO ONE (16:00)
[2016-08-21] MEDS: ENOXAPARIN 40 MG/0.4 ML SYRINGE. SQ SCH (16:05)
[2016-08-21 19:00] VITALS: BP 104/62
[2016-08-21] MEDS ORDERED: LACTULOSE 20 GM/30 ML SOLUTION. PO ONE (21:00)
[2016-08-21] MEDS: traZODone 50 MG TABLET. PO SCH (21:56)
[2016-08-21] MEDS: ACETAMINOPHEN 325 MG TABLET. PO PRN (21:56)
[2016-08-21 23:00] VITALS: BP 130/88
[2016-08-22 03:00] VITALS: BP 128/68
[2016-08-22 04:07] LABS: INR 1.7 (0.8-1.1); PROTHROMBIN TIME PATIENT 18.6 SEC (11.7-14.0)
[2016-08-22 07:00] VITALS: BP 120/60
[2016-08-22] MEDS: DOCUSATE SODIUM 100 MG CAPSULE. PO SCH (08:33)
[2016-08-22] MEDS: POLYETHYLENE GLYCOL 3350 17 GM PACKET. PO SCH (08:33)
[2016-08-22] MEDS: CITALOPRAM 20 MG TABLET. PO SCH (08:34)
[2016-08-22] MEDS: LEVOTHYROXINE 150 MCG TABLET PO SCH (08:34)
[2016-08-22] MEDS: ALLOPURINOL 100 MG TABLET. PO SCH (08:34)
[2016-08-22] MEDS: amLODIPine BESYLATE 2.5 MG TABLET PO SCH (08:36)
[2016-08-22 11:00] VITALS: BP 116/63
--- NOTE | 2016-08-22 13:09 | PDOC ---
PROGRESS NOTES Chief Complaint Chief Complaint cc: fracture hip A/P Right intertrochanteric hip fracture., S/PClosed reduction and intramedullary nailing of right intertrochanteric hip fracture. Plan Pain control see orderer PT/OT DVT prophylaxis, warfarin labs reviewed, SNU placement pending. Vitals Vitals Vital Signs Date Time Temp Pulse Resp B/P (MAP) Pulse Ox O2 Delivery O2 Flow Rate FiO2 08/22/16 11:00 97.8 65 14 116/63 (80) 91 Room Air 97.8 Physical Exam General: Alert, Oriented X3, Cooperative, No acute distress Heart: Regular rate, Normal S1, No murmurs Lungs: Clear Abdomen: Normal bowel sounds, Soft Extremities: No clubbing, No edema, Normal pulses Skin: No rashes, No significant lesion Labs LABS Laboratory Tests Test 08/22/16 03:20 Prothrombin Time 18.6 SEC (11.7-14.0) Prothromb Time International Ratio 1.7 (0.8-1.1) Assessment and Plan Assessmemt and Plan Problems Medical Problems: (1) Hip fracture, intertrochanteric Status: Acute Problems: Comment Review of Relevant I have reviewed the following items viola (where applicable) has been applied. Labs Laboratory Tests Test 08/21/16 03:47 08/22/16 03:20 Prothrombin Time 17.9 SEC (11.7-14.0) 18.6 SEC (11.7-14.0) Prothromb Time International Ratio 1.6 (0.8-1.1) 1.7 (0.8-1.1) Laboratory Tests Test 08/22/16 03:20 Prothrombin Time 18.6 SEC (11.7-14.0) Prothromb Time International Ratio 1.7 (0.8-1.1) Medications Current Medications Ondansetron HCl (Zofran) 4 mg PRN Q8HRS PRN IV NAUSEA/VOMITING Last administered on 08/17/16 11:25; Start 08/17/16 at 10:45; Stop 08/18/16 at 10:44 ; Status DC Fentanyl Citrate (Fentanyl 2ml Vial) 50 mcg PRN Q1HR PRN IV PAIN Last administered on 08/18/16 06:00; Start 08/17/16 at 10:45; Stop 08/18/16 at 10:44 ; Status DC Clindamycin Phosphate 50 ml @ 100 mls/hr 1X ONCE IV ; Start 08/17/16 at 13:15 ; Stop 08/17/16 at 13:44; Status Cancel Oxycodone/ Acetaminophen (Percocet 7.5/ 325) 1 tab PRN Q4HRS PRN PO PAIN Last administered on 08/21/16 16:13; Start 08/17/16 at 15:15 Levothyroxine Sodium (Synthroid) 150 mcg DAILY07 PO ; Start 08/18/16 at 07:00; Stop 08/18/16 at 07:00; Status DC Amlodipine Besylate (Norvasc) 2.5 mg DAILY PO ; Start 08/17/16 at 16:00; Stop at 16:27; Status DC Allopurinol (Zyloprim) 100 mg DAILY PO ; Start 08/17/16 at 16:00; Stop 08/17/16 at 16:25; Status DC Allopurinol (Zyloprim) 100 mg DAILY PO Last administered on 08/22/16 08:34; Start 08/17/16 at 17:00 Amlodipine Besylate (Norvasc) 2.5 mg DAILY PO Last administered on 08/22/16 08 :36; Start 08/17/16 at 17:00 Levothyroxine Sodium (Synthroid) 150 mcg DAILY07 PO Last administered on 08:34; Start 08/18/16 at 07:00 Trazodone HCl (Desyrel) 75 mg QHS PO Last administered on 08/21/16 21:56; Start 08/17/16 at 21:00 Citalopram Hydrobromide (CeleXA) 40 mg DAILY PO Last administered on 08/22/16 08:34; Start 08/17/16 at 17:00 Fentanyl Citrate (Fentanyl 2ml Vial) 25 mcg PRN Q5MIN PRN IV MILD PAIN; Start 08/18/16 at 07:00; Stop 08/19/16 at 06:59; Status DC Fentanyl Citrate (Fentanyl 2ml Vial) 50 mcg PRN Q5MIN PRN IV MODERATE PAIN Last administered on 08/18/16 09:16; Start 08/18/16 at 07:00; Stop 08/19/16 at 06:59; Status DC Morphine Sulfate 1 mg PRN Q10MIN PRN IV SEVERE PAIN; Start 08/18/16 at 07:00; Stop 08/19/16 at 06:59; Status DC Ringer's Solution 1,000 ml @ 30 mls/hr Q24H IV Last administered on 08/18/16t 07:36; Start 08/18/16 at 07:00; Stop 08/18/16 at 18:59; Status DC Lidocaine HCl 2 ml PRN 1X PRN ID PRIOR TO IV START; Start 08/18/16 at 07:00; Stop 08/19/16 at 06:59; Status DC Hydromorphone HCl (Dilaudid) 0.5 mg PRN Q10MIN PRN IV SEV PAIN, Second choice; Start 08/18/16 at 07:00; Stop 08/19/16 at 06:59; Status DC Prochlorperazine Edisylate (Compazine) 5 mg PACU PRN PRN IV NAUSEA, MRX1; Start 08/18/16 at 07:00; Stop 08/19/16 at 06:59; Status DC Clindamycin Phosphate 50 ml @ 100 mls/hr 1X ONCE IV Last administered on 08/18 07:48; Start 08/18/16 at 07:30; Stop 08/18/16 at 07:59; Status DC Bupivacaine HCl (Sensorcaine Mpf 0.5%) 30 ml STK-MED ONCE .ROUTE ; Start at 06:29; Stop 08/18/16 at 06:30; Status DC Lidocaine HCl 20 ml STK-MED ONCE .ROUTE ; Start 08/18/16 at 06:29; Stop at 06:30; Status DC Dexamethasone Sodium Phosphate (Decadron) 20 mg STK-MED ONCE .ROUTE ; Start at 06:49; Stop 08/18/16 at 06:50; Status DC Ondansetron HCl (Zofran) 4 mg STK-MED ONCE .ROUTE ; Start 08/18/16 at 06:49; Stop 08/18/16 at 06:50; Status DC Propofol 20 ml @ As Directed STK-MED ONCE IV ; Start 08/18/16 at 06:49; Stop at 06:50; Status DC Lidocaine HCl (Lidocaine Pf 2% Vial) 5 ml STK-MED ONCE .ROUTE ; Start 08/18/16 at 06:49; Stop 08/18/16 at 06:50; Status DC Sevoflurane (Ultane) 60 ml STK-MED ONCE IH ; Start 08/18/16 at 06:49; Stop 08/18 at 06:50; Status DC Fentanyl Citrate (Fentanyl 2ml Vial) 100 mcg STK-MED ONCE .ROUTE ; Start at 06:50; Stop 08/18/16 at 06:51; Status DC Ketorolac Tromethamine (Toradol For Or Only) 60 mg STK-MED ONCE .ROUTE ; Start 08/18/16 at 06:50; Stop 08/18/16 at 06:51; Status DC Clindamycin Phosphate 50 ml @ 100 mls/hr Q8H IV Last administered on 08:52; Start 08/18/16 at 16:00; Stop 08/19/16 at 08:29; Status DC Morphine Sulfate 5 mg/Ketorolac Tromethamine 30 mg/Ropivacaine 60 ml/ Epinephrine HCl 0.5 mg/Sodium Chloride 100 ml @ 100 mls/hr 1X PERIOP ONCE INT ART Last administered on 08/18/16 08:13; Start 08/18/16 at 07:45; Stop at 08:44; Status DC Ephedrine Sulfate 50 mg STK-MED ONCE IV ; Start 08/18/16 at 07:50; Stop at 07:51; Status DC Warfarin Sodium (Coumadin) 5 mg 1X ONCE PO Last administered on 08/18/16 17: 38; Start 08/18/16 at 17:00; Stop 08/18/16 at 17:01; Status DC Warfarin Sodium (Coumadin Per Pharmacy) 1 each PRN DAILY PRN MC SEE COMMENTS Last administered on 08/22/16 12:03; Start 08/18/16 at 16:15 Enoxaparin Sodium (Lovenox Per Pharmacy Prophylaxis Dosing) 1 each PRN DAILY PRN MC SEE COMMENTS; Start 08/19/16 at 08:30; Stop 08/22/16 at 12:09; Status DC Zolpidem Tartrate (Ambien) 5 mg PRN QHS PRN PO INSOMNIA Last administered on 21:01; Start 08/19/16 at 08:45 Polyethylene Glycol (miraLAX PACKET) 17 gm DAILY PO Last administered on 08:33; Start 08/19/16 at 09:00 Docusate Sodium (Colace) 100 mg DAILY PO Last administered on 08/22/16 08:33; Start 08/19/16 at 09:00 Enoxaparin Sodium (Lovenox 40mg Syringe) 40 mg DAILY16 SQ Last administered on 08/21/16 16:05; Start 08/19/16 at 16:00; Stop 08/22/16 at 12:09; Status DC Warfarin Sodium (Coumadin) 5 mg 1X WARF ONCE PO Last administered on 16:21; Start 08/19/16 at 16:00; Stop 08/19/16 at 16:01; Status DC Magnesium Hydroxide (Milk Of Magnesia) 2,400 mg 1X ONCE PO Last administered on 08/20/16 11:40; Start 08/20/16 at 10:30; Stop 08/20/16 at 10:31; Status DC Warfarin Sodium (Coumadin) 4 mg 1X WARF ONCE PO Last administered on 16:52; Start 08/20/16 at 16:00; Stop 08/20/16 at 16:01; Status DC Warfarin Sodium (Coumadin) 4 mg 1X WARF ONCE PO Last administered on 16:03; Start 08/21/16 at 16:00; Stop 08/21/16 at 16:01; Status DC Lactulose 20 gm 1X ONCE PO Last administered on 08/21/16 21:56; Start at 21:00; Stop 08/21/16 at 21:04; Status DC Acetaminophen (Tylenol) 650 mg PRN Q6HRS PRN PO Pain Last administered on 08/21 21:56; Start 08/21/16 at 21:45 Calcium Carbonate/ Glycine (Tums) 500 mg PRN AFTMEALHC PRN PO INDIGESTION; Start 08/22/16 at 01:30 Warfarin Sodium (Coumadin) 4 mg 1X WARF ONCE PO ; Start 08/22/16 at 16:00; Stop 08/22/16 at 16:01 Active Scripts Active Reported Allopurinol 100 Mg Tablet 1 Tab PO DAILY Levothyroxine Sodium 150 Mcg Tablet 1 Tab PO DAILY Amlodipine Besylate 2.5 Mg Tablet 2.5 Mg PO DAILY Trazodone Hcl 50 Mg Tablet 1.5 Tab PO QHS Benazepril Hcl 20 Mg Tablet 1 Tab PO DAILY Hydrochlorothiazide Capsule (Hydrochlorothiazide) 12.5 Mg Capsule 1 Cap PO DAILY Citalopram Hbr (Citalopram Hydrobromide) 40 Mg Tablet 1 Tab PO DAILY Vitals/I & O Vital Sign - Last 24 Hours 08/21/16 08/21/16 08/21/16 08/21/16 15:00 16:13 19:00 20:00 Temp 97.7 98.5 97.7 98.5 Pulse 74 77 Resp 18 18 B/P (MAP) 117/66 (83) 104/62 (76) Pulse Ox 95 94 O2 Delivery Room Air Room Air Room Air Room Air 08/21/16 08/22/16 08/22/16 08/22/16 23:00 03:00 07:00 07:35 Temp 98.3 98.7 98.2 98.3 98.7 98.2 Pulse 74 68 67 Resp 18 18 14 B/P (MAP) 130/88 (102) 128/68 (88) 120/60 (80) Pulse Ox 95 90 93 O2 Delivery Room Air Room Air Room Air Room Air 08/22/16 08/22/16 08:36 11:00 Temp 97.8 97.8 Pulse 67 65 Resp 14 B/P (MAP) 120/60 116/63 (80) Pulse Ox 91 O2 Delivery Room Air Intake and Output 08/21/16 08/21/16 08/22/16 15:00 23:00 07:00 Intake Total 120 ml 0 ml Output Total 0 ml Balance 120 ml 0 ml 0 ml BLAISE JANE MD August 22, 2016 13:09
[2016-08-22 15:00] VITALS: BP 136/74
[2016-08-22] MEDS: CALCIUM CARBONATE 500 MG TAB.CHEW PO PRN ×2 (15:05→23:14)
[2016-08-22] MEDS ORDERED: WARFARIN 4 MG TABLET. PO ONE (16:00)
[2016-08-22] MEDS: oxyCODONE/APAP 7.5/325 1 TAB TABLET PO PRN ×2 (16:44→21:45)
[2016-08-22 19:38] VITALS: BP 142/69
[2016-08-22] MEDS: traZODone 50 MG TABLET. PO SCH (21:45)
[2016-08-22 23:00] VITALS: BP 115/56
[2016-08-23 03:19] VITALS: BP 160/80
[2016-08-23 04:23] LABS: INR 1.9 (0.8-1.1); PROTHROMBIN TIME PATIENT 20.7 SEC (11.7-14.0)
[2016-08-23 07:00] VITALS: BP 121/66
[2016-08-23] MEDS: CITALOPRAM 20 MG TABLET. PO SCH (08:02)
[2016-08-23] MEDS: LEVOTHYROXINE 150 MCG TABLET PO SCH (08:02)
[2016-08-23] MEDS: POLYETHYLENE GLYCOL 3350 17 GM PACKET. PO SCH (08:02)
[2016-08-23] MEDS: ALLOPURINOL 100 MG TABLET. PO SCH (08:03)
[2016-08-23] MEDS: amLODIPine BESYLATE 2.5 MG TABLET PO SCH (08:03)
[2016-08-23] MEDS: DOCUSATE SODIUM 100 MG CAPSULE. PO SCH (08:03)
[2016-08-23 11:00] VITALS: BP 116/59
[2016-08-23 15:00] VITALS: BP 115/72
[2016-08-23] MEDS: oxyCODONE/APAP 7.5/325 1 TAB TABLET PO PRN ×2 (15:29→20:24)
[2016-08-23] MEDS ORDERED: WARFARIN 3 MG TABLET. PO ONE (16:00)
--- NOTE | 2016-08-23 16:28 | PDOC ---
PROGRESS NOTES Chief Complaint Chief Complaint cc: fracture hip A/P Right intertrochanteric hip fracture., S/P Closed reduction and intramedullary nailing of right intertrochanteric hip fracture. Plan Pain control see orderer PT/OT DVT prophylaxis, warfarin labs reviewed, SNU placement pending. Vitals Vitals Vital Signs Date Time Temp Pulse Resp B/P (MAP) Pulse Ox O2 Delivery O2 Flow Rate FiO2 08/23/16 15:29 94 Room Air 08/23/16 15:00 97.6 85 16 115/72 (86) 97.6 Physical Exam General: Alert, Oriented X3, Cooperative, No acute distress Heart: Regular rate, Normal S1, No murmurs Lungs: Clear Abdomen: Normal bowel sounds, Soft Extremities: No clubbing, No edema, Normal pulses Skin: No rashes, No significant lesion Labs LABS Laboratory Tests Test 08/23/16 03:27 Prothrombin Time 20.7 SEC (11.7-14.0) Prothromb Time International Ratio 1.9 (0.8-1.1) Assessment and Plan Assessmemt and Plan Problems Medical Problems: (1) Hip fracture, intertrochanteric Status: Acute Problems: Comment Review of Relevant I have reviewed the following items viola (where applicable) has been applied. Labs Laboratory Tests Test 08/22/16 03:20 08/23/16 03:27 Prothrombin Time 18.6 SEC (11.7-14.0) 20.7 SEC (11.7-14.0) Prothromb Time International Ratio 1.7 (0.8-1.1) 1.9 (0.8-1.1) Laboratory Tests Test 08/23/16 03:27 Prothrombin Time 20.7 SEC (11.7-14.0) Prothromb Time International Ratio 1.9 (0.8-1.1) Medications Current Medications Ondansetron HCl (Zofran) 4 mg PRN Q8HRS PRN IV NAUSEA/VOMITING Last administered on 08/17/16 11:25; Start 08/17/16 at 10:45; Stop 08/18/16 at 10:44 ; Status DC Fentanyl Citrate (Fentanyl 2ml Vial) 50 mcg PRN Q1HR PRN IV PAIN Last administered on 08/18/16 06:00; Start 08/17/16 at 10:45; Stop 08/18/16 at 10:44 ; Status DC Clindamycin Phosphate 50 ml @ 100 mls/hr 1X ONCE IV ; Start 08/17/16 at 13:15 ; Stop 08/17/16 at 13:44; Status Cancel Oxycodone/ Acetaminophen (Percocet 7.5/ 325) 1 tab PRN Q4HRS PRN PO PAIN Last administered on 08/23/16 15:29; Start 08/17/16 at 15:15 Levothyroxine Sodium (Synthroid) 150 mcg DAILY07 PO ; Start 08/18/16 at 07:00; Stop 08/18/16 at 07:00; Status DC Amlodipine Besylate (Norvasc) 2.5 mg DAILY PO ; Start 08/17/16 at 16:00; Stop at 16:27; Status DC Allopurinol (Zyloprim) 100 mg DAILY PO ; Start 08/17/16 at 16:00; Stop 08/17/16 at 16:25; Status DC Allopurinol (Zyloprim) 100 mg DAILY PO Last administered on 08/23/16 08:03; Start 08/17/16 at 17:00 Amlodipine Besylate (Norvasc) 2.5 mg DAILY PO Last administered on 08/23/16 08 :03; Start 08/17/16 at 17:00 Levothyroxine Sodium (Synthroid) 150 mcg DAILY07 PO Last administered on 08:02; Start 08/18/16 at 07:00 Trazodone HCl (Desyrel) 75 mg QHS PO Last administered on 08/22/16 21:45; Start 08/17/16 at 21:00 Citalopram Hydrobromide (CeleXA) 40 mg DAILY PO Last administered on 08/23/16 08:02; Start 08/17/16 at 17:00 Fentanyl Citrate (Fentanyl 2ml Vial) 25 mcg PRN Q5MIN PRN IV MILD PAIN; Start 08/18/16 at 07:00; Stop 08/19/16 at 06:59; Status DC Fentanyl Citrate (Fentanyl 2ml Vial) 50 mcg PRN Q5MIN PRN IV MODERATE PAIN Last administered on 08/18/16 09:16; Start 08/18/16 at 07:00; Stop 08/19/16 at 06:59; Status DC Morphine Sulfate 1 mg PRN Q10MIN PRN IV SEVERE PAIN; Start 08/18/16 at 07:00; Stop 08/19/16 at 06:59; Status DC Ringer's Solution 1,000 ml @ 30 mls/hr Q24H IV Last administered on 08/18/16t 07:36; Start 08/18/16 at 07:00; Stop 08/18/16 at 18:59; Status DC Lidocaine HCl 2 ml PRN 1X PRN ID PRIOR TO IV START; Start 08/18/16 at 07:00; Stop 08/19/16 at 06:59; Status DC Hydromorphone HCl (Dilaudid) 0.5 mg PRN Q10MIN PRN IV SEV PAIN, Second choice; Start 08/18/16 at 07:00; Stop 08/19/16 at 06:59; Status DC Prochlorperazine Edisylate (Compazine) 5 mg PACU PRN PRN IV NAUSEA, MRX1; Start 08/18/16 at 07:00; Stop 08/19/16 at 06:59; Status DC Clindamycin Phosphate 50 ml @ 100 mls/hr 1X ONCE IV Last administered on 08/18t 07:48; Start 08/18/16 at 07:30; Stop 08/18/16 at 07:59; Status DC Bupivacaine HCl (Sensorcaine Mpf 0.5%) 30 ml STK-MED ONCE .ROUTE ; Start at 06:29; Stop 08/18/16 at 06:30; Status DC Lidocaine HCl 20 ml STK-MED ONCE .ROUTE ; Start 08/18/16 at 06:29; Stop at 06:30; Status DC Dexamethasone Sodium Phosphate (Decadron) 20 mg STK-MED ONCE .ROUTE ; Start at 06:49; Stop 08/18/16 at 06:50; Status DC Ondansetron HCl (Zofran) 4 mg STK-MED ONCE .ROUTE ; Start 08/18/16 at 06:49; Stop 08/18/16 at 06:50; Status DC Propofol 20 ml @ As Directed STK-MED ONCE IV ; Start 08/18/16 at 06:49; Stop at 06:50; Status DC Lidocaine HCl (Lidocaine Pf 2% Vial) 5 ml STK-MED ONCE .ROUTE ; Start 08/18/16 at 06:49; Stop 08/18/16 at 06:50; Status DC Sevoflurane (Ultane) 60 ml STK-MED ONCE IH ; Start 08/18/16 at 06:49; Stop 08/18 at 06:50; Status DC Fentanyl Citrate (Fentanyl 2ml Vial) 100 mcg STK-MED ONCE .ROUTE ; Start at 06:50; Stop 08/18/16 at 06:51; Status DC Ketorolac Tromethamine (Toradol For Or Only) 60 mg STK-MED ONCE .ROUTE ; Start 08/18/16 at 06:50; Stop 08/18/16 at 06:51; Status DC Clindamycin Phosphate 50 ml @ 100 mls/hr Q8H IV Last administered on 08:52; Start 08/18/16 at 16:00; Stop 08/19/16 at 08:29; Status DC Morphine Sulfate 5 mg/Ketorolac Tromethamine 30 mg/Ropivacaine 60 ml/ Epinephrine HCl 0.5 mg/Sodium Chloride 100 ml @ 100 mls/hr 1X PERIOP ONCE INT ART Last administered on 08/18/16 08:13; Start 08/18/16 at 07:45; Stop at 08:44; Status DC Ephedrine Sulfate 50 mg STK-MED ONCE IV ; Start 08/18/16 at 07:50; Stop at 07:51; Status DC Warfarin Sodium (Coumadin) 5 mg 1X ONCE PO Last administered on 08/18/16 17: 38; Start 08/18/16 at 17:00; Stop 08/18/16 at 17:01; Status DC Warfarin Sodium (Coumadin Per Pharmacy) 1 each PRN DAILY PRN MC SEE COMMENTS Last administered on 08/23/16 11:49; Start 08/18/16 at 16:15 Enoxaparin Sodium (Lovenox Per Pharmacy Prophylaxis Dosing) 1 each PRN DAILY PRN MC SEE COMMENTS; Start 08/19/16 at 08:30; Stop 08/22/16 at 12:09; Status DC Zolpidem Tartrate (Ambien) 5 mg PRN QHS PRN PO INSOMNIA Last administered on 21:01; Start 08/19/16 at 08:45 Polyethylene Glycol (miraLAX PACKET) 17 gm DAILY PO Last administered on 08:02; Start 08/19/16 at 09:00 Docusate Sodium (Colace) 100 mg DAILY PO Last administered on 08/23/16 08:03; Start 08/19/16 at 09:00 Enoxaparin Sodium (Lovenox 40mg Syringe) 40 mg DAILY16 SQ Last administered on 08/21/16 16:05; Start 08/19/16 at 16:00; Stop 08/22/16 at 12:09; Status DC Warfarin Sodium (Coumadin) 5 mg 1X WARF ONCE PO Last administered on 16:21; Start 08/19/16 at 16:00; Stop 08/19/16 at 16:01; Status DC Magnesium Hydroxide (Milk Of Magnesia) 2,400 mg 1X ONCE PO Last administered on 08/20/16 11:40; Start 08/20/16 at 10:30; Stop 08/20/16 at 10:31; Status DC Warfarin Sodium (Coumadin) 4 mg 1X WARF ONCE PO Last administered on 16:52; Start 08/20/16 at 16:00; Stop 08/20/16 at 16:01; Status DC Warfarin Sodium (Coumadin) 4 mg 1X WARF ONCE PO Last administered on 16:03; Start 08/21/16 at 16:00; Stop 08/21/16 at 16:01; Status DC Lactulose 20 gm 1X ONCE PO Last administered on 08/21/16 21:56; Start at 21:00; Stop 08/21/16 at 21:04; Status DC Acetaminophen (Tylenol) 650 mg PRN Q6HRS PRN PO Pain Last administered on 08/21 21:56; Start 08/21/16 at 21:45 Calcium Carbonate/ Glycine (Tums) 500 mg PRN AFTMEALHC PRN PO INDIGESTION Last administered on 08/22/16 23:14; Start 08/22/16 at 01:30 Warfarin Sodium (Coumadin) 4 mg 1X WARF ONCE PO Last administered on 5/20/ 17at 16:42; Start 08/22/16 at 16:00; Stop 08/22/16 at 16:01; Status DC Warfarin Sodium (Coumadin) 3 mg 1X WARF ONCE PO ; Start 08/23/16 at 16:00; Stop 08/23/16 at 16:01; Status DC Active Scripts Active Reported Allopurinol 100 Mg Tablet 1 Tab PO DAILY Levothyroxine Sodium 150 Mcg Tablet 1 Tab PO DAILY Amlodipine Besylate 2.5 Mg Tablet 2.5 Mg PO DAILY Trazodone Hcl 50 Mg Tablet 1.5 Tab PO QHS Benazepril Hcl 20 Mg Tablet 1 Tab PO DAILY Hydrochlorothiazide Capsule (Hydrochlorothiazide) 12.5 Mg Capsule 1 Cap PO DAILY Citalopram Hbr (Citalopram Hydrobromide) 40 Mg Tablet 1 Tab PO DAILY Vitals/I & O Vital Sign - Last 24 Hours 08/22/16 08/22/16 08/22/16 08/22/16 16:44 19:38 20:22 21:45 Temp 98.1 98.1 Pulse 70 Resp 18 20 B/P (MAP) 142/69 (93) Pulse Ox 94 94 O2 Delivery Room Air Room Air Room Air Room Air 08/22/16 08/22/16 08/23/16 08/23/16 22:45 23:00 03:19 07:00 Temp 98.1 97.7 98.0 98.1 97.7 98.0 Pulse 69 78 78 Resp 20 18 18 16 B/P (MAP) 115/56 (75) 160/80 (106) 121/66 (84) Pulse Ox 93 93 95 94 O2 Delivery Room Air Room Air Room Air Room Air 08/23/16 08/23/16 08/23/16 08/23/16 08:03 08:30 11:00 15:00 Temp 98.3 97.6 98.3 97.6 Pulse 78 68 85 Resp 16 16 B/P (MAP) 160/80 116/59 (78) 115/72 (86) Pulse Ox 94 92 O2 Delivery Room Air Room Air Room Air 08/23/16 15:29 Pulse Ox 94 O2 Delivery Room Air Intake and Output 08/22/16 08/22/16 08/23/16 15:00 23:00 07:00 Intake Total 240 ml 0 ml Balance 240 ml 0 ml BLAISE JANE MD August 23, 2016 16:28
[2016-08-23 19:00] VITALS: BP 108/67
[2016-08-23] MEDS: traZODone 50 MG TABLET. PO SCH (20:24)
[2016-08-23 23:00] VITALS: BP 113/67
[2016-08-24] MEDS: CALCIUM CARBONATE 500 MG TAB.CHEW PO PRN (01:36)
[2016-08-24 03:00] VITALS: BP 132/67
[2016-08-24 05:09] LABS: INR 1.9 (0.8-1.1); PROTHROMBIN TIME PATIENT 20.5 SEC (11.7-14.0)
[2016-08-24 07:00] VITALS: BP 128/61
[2016-08-24] MEDS: ACETAMINOPHEN 325 MG TABLET. PO PRN (08:21)
[2016-08-24] MEDS: amLODIPine BESYLATE 2.5 MG TABLET PO SCH (08:23)
[2016-08-24] MEDS: DOCUSATE SODIUM 100 MG CAPSULE. PO SCH (08:24)
[2016-08-24] MEDS: CITALOPRAM 20 MG TABLET. PO SCH (08:24)
[2016-08-24] MEDS: LEVOTHYROXINE 150 MCG TABLET PO SCH (08:24)
[2016-08-24] MEDS: ALLOPURINOL 100 MG TABLET. PO SCH (08:24)
[2016-08-24] MEDS: POLYETHYLENE GLYCOL 3350 17 GM PACKET. PO SCH (08:31)
[2016-08-24 11:00] VITALS: BP 121/66
--- NOTE | 2016-08-24 12:39 | PDOC ---
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 Vitals Vitals Vital Signs Date Time Temp Pulse Resp B/P (MAP) Pulse Ox O2 Delivery O2 Flow Rate FiO2 08/24/16 11:00 98.4 69 20 121/66 (84) 94 Room Air 98.4 Physical Exam General: Alert, Oriented X3, Cooperative, No acute distress Heart: Regular rate, Normal S1, No murmurs Lungs: Clear, Other (No wheezing) Abdomen: Normal bowel sounds, Soft Extremities: No clubbing, No edema, Normal pulses Skin: No rashes, No significant lesion Labs LABS Laboratory Tests Test 08/24/16 04:10 Prothrombin Time 20.5 SEC (11.7-14.0) Prothromb Time International Ratio 1.9 (0.8-1.1) Review of Systems Review of Systems Denies chest pain Denies SOA Assessment and Plan Assessmemt and Plan Problems Medical Problems: (1) Hip fracture, intertrochanteric Status: Acute A/P Assessment: 1. Right intertrochanteric hip fracture - S/P ORIF. 2. Pain 3. Hx of gout 4. Hx of anxiety 5. Hx of hypothyroidism Plan: Ortho input appreciated - continue their recs Pain control - continue Percocet prn SNU eval PT/OT Check labs in am DVT prophylaxis, warfarin Disp: d/c today if SNU placement Problems: Comment Review of Relevant I have reviewed the following items viola (where applicable) has been applied. Labs Laboratory Tests Test 08/23/16 03:27 08/24/16 04:10 Prothrombin Time 20.7 SEC (11.7-14.0) 20.5 SEC (11.7-14.0) Prothromb Time International Ratio 1.9 (0.8-1.1) 1.9 (0.8-1.1) Laboratory Tests Test 08/24/16 04:10 Prothrombin Time 20.5 SEC (11.7-14.0) Prothromb Time International Ratio 1.9 (0.8-1.1) Medications Current Medications Ondansetron HCl (Zofran) 4 mg PRN Q8HRS PRN IV NAUSEA/VOMITING Last administered on 08/17/16 11:25; Start 08/17/16 at 10:45; Stop 08/18/16 at 10:44 ; Status DC Fentanyl Citrate (Fentanyl 2ml Vial) 50 mcg PRN Q1HR PRN IV PAIN Last administered on 08/18/16 06:00; Start 08/17/16 at 10:45; Stop 08/18/16 at 10:44 ; Status DC Clindamycin Phosphate 50 ml @ 100 mls/hr 1X ONCE IV ; Start 08/17/16 at 13:15 ; Stop 08/17/16 at 13:44; Status Cancel Oxycodone/ Acetaminophen (Percocet 7.5/ 325) 1 tab PRN Q4HRS PRN PO PAIN Last administered on 08/23/16 20:24; Start 08/17/16 at 15:15 Levothyroxine Sodium (Synthroid) 150 mcg DAILY07 PO ; Start 08/18/16 at 07:00; Stop 08/18/16 at 07:00; Status DC Amlodipine Besylate (Norvasc) 2.5 mg DAILY PO ; Start 08/17/16 at 16:00; Stop at 16:27; Status DC Allopurinol (Zyloprim) 100 mg DAILY PO ; Start 08/17/16 at 16:00; Stop 08/17/16 at 16:25; Status DC Allopurinol (Zyloprim) 100 mg DAILY PO Last administered on 08/24/16 08:24; Start 08/17/16 at 17:00 Amlodipine Besylate (Norvasc) 2.5 mg DAILY PO Last administered on 08/24/16 08 :23; Start 08/17/16 at 17:00 Levothyroxine Sodium (Synthroid) 150 mcg DAILY07 PO Last administered on 08:24; Start 08/18/16 at 07:00 Trazodone HCl (Desyrel) 75 mg QHS PO Last administered on 08/23/16 20:24; Start 08/17/16 at 21:00 Citalopram Hydrobromide (CeleXA) 40 mg DAILY PO Last administered on 08/24/16 08:24; Start 08/17/16 at 17:00 Fentanyl Citrate (Fentanyl 2ml Vial) 25 mcg PRN Q5MIN PRN IV MILD PAIN; Start 08/18/16 at 07:00; Stop 08/19/16 at 06:59; Status DC Fentanyl Citrate (Fentanyl 2ml Vial) 50 mcg PRN Q5MIN PRN IV MODERATE PAIN Last administered on 08/18/16 09:16; Start 08/18/16 at 07:00; Stop 08/19/16 at 06:59; Status DC Morphine Sulfate 1 mg PRN Q10MIN PRN IV SEVERE PAIN; Start 08/18/16 at 07:00; Stop 08/19/16 at 06:59; Status DC Ringer's Solution 1,000 ml @ 30 mls/hr Q24H IV Last administered on 08/18/16 07:36; Start 08/18/16 at 07:00; Stop 08/18/16 at 18:59; Status DC Lidocaine HCl 2 ml PRN 1X PRN ID PRIOR TO IV START; Start 08/18/16 at 07:00; Stop 08/19/16 at 06:59; Status DC Hydromorphone HCl (Dilaudid) 0.5 mg PRN Q10MIN PRN IV SEV PAIN, Second choice; Start 08/18/16 at 07:00; Stop 08/19/16 at 06:59; Status DC Prochlorperazine Edisylate (Compazine) 5 mg PACU PRN PRN IV NAUSEA, MRX1; Start 08/18/16 at 07:00; Stop 08/19/16 at 06:59; Status DC Clindamycin Phosphate 50 ml @ 100 mls/hr 1X ONCE IV Last administered on 08/18 07:48; Start 08/18/16 at 07:30; Stop 08/18/16 at 07:59; Status DC Bupivacaine HCl (Sensorcaine Mpf 0.5%) 30 ml STK-MED ONCE .ROUTE ; Start at 06:29; Stop 08/18/16 at 06:30; Status DC Lidocaine HCl 20 ml STK-MED ONCE .ROUTE ; Start 08/18/16 at 06:29; Stop at 06:30; Status DC Dexamethasone Sodium Phosphate (Decadron) 20 mg STK-MED ONCE .ROUTE ; Start at 06:49; Stop 08/18/16 at 06:50; Status DC Ondansetron HCl (Zofran) 4 mg STK-MED ONCE .ROUTE ; Start 08/18/16 at 06:49; Stop 08/18/16 at 06:50; Status DC Propofol 20 ml @ As Directed STK-MED ONCE IV ; Start 08/18/16 at 06:49; Stop at 06:50; Status DC Lidocaine HCl (Lidocaine Pf 2% Vial) 5 ml STK-MED ONCE .ROUTE ; Start 08/18/16 at 06:49; Stop 08/18/16 at 06:50; Status DC Sevoflurane (Ultane) 60 ml STK-MED ONCE IH ; Start 08/18/16 at 06:49; Stop 08/18 at 06:50; Status DC Fentanyl Citrate (Fentanyl 2ml Vial) 100 mcg STK-MED ONCE .ROUTE ; Start at 06:50; Stop 08/18/16 at 06:51; Status DC Ketorolac Tromethamine (Toradol For Or Only) 60 mg STK-MED ONCE .ROUTE ; Start 08/18/16 at 06:50; Stop 08/18/16 at 06:51; Status DC Clindamycin Phosphate 50 ml @ 100 mls/hr Q8H IV Last administered on 08:52; Start 08/18/16 at 16:00; Stop 08/19/16 at 08:29; Status DC Morphine Sulfate 5 mg/Ketorolac Tromethamine 30 mg/Ropivacaine 60 ml/ Epinephrine HCl 0.5 mg/Sodium Chloride 100 ml @ 100 mls/hr 1X PERIOP ONCE INT ART Last administered on 08/18/16 08:13; Start 08/18/16 at 07:45; Stop at 08:44; Status DC Ephedrine Sulfate 50 mg STK-MED ONCE IV ; Start 08/18/16 at 07:50; Stop at 07:51; Status DC Warfarin Sodium (Coumadin) 5 mg 1X ONCE PO Last administered on 08/18/16 17: 38; Start 08/18/16 at 17:00; Stop 08/18/16 at 17:01; Status DC Warfarin Sodium (Coumadin Per Pharmacy) 1 each PRN DAILY PRN MC SEE COMMENTS Last administered on 08/24/16 11:33; Start 08/18/16 at 16:15 Enoxaparin Sodium (Lovenox Per Pharmacy Prophylaxis Dosing) 1 each PRN DAILY PRN MC SEE COMMENTS; Start 08/19/16 at 08:30; Stop 08/22/16 at 12:09; Status DC Zolpidem Tartrate (Ambien) 5 mg PRN QHS PRN PO INSOMNIA Last administered on 21:01; Start 08/19/16 at 08:45 Polyethylene Glycol (miraLAX PACKET) 17 gm DAILY PO Last administered on 08:02; Start 08/19/16 at 09:00 Docusate Sodium (Colace) 100 mg DAILY PO Last administered on 08/24/16 08:24; Start 08/19/16 at 09:00 Enoxaparin Sodium (Lovenox 40mg Syringe) 40 mg DAILY16 SQ Last administered on 08/21/16 16:05; Start 08/19/16 at 16:00; Stop 08/22/16 at 12:09; Status DC Warfarin Sodium (Coumadin) 5 mg 1X WARF ONCE PO Last administered on 16:21; Start 08/19/16 at 16:00; Stop 08/19/16 at 16:01; Status DC Magnesium Hydroxide (Milk Of Magnesia) 2,400 mg 1X ONCE PO Last administered on 08/20/16 11:40; Start 08/20/16 at 10:30; Stop 08/20/16 at 10:31; Status DC Warfarin Sodium (Coumadin) 4 mg 1X WARF ONCE PO Last administered on 16:52; Start 08/20/16 at 16:00; Stop 08/20/16 at 16:01; Status DC Warfarin Sodium (Coumadin) 4 mg 1X WARF ONCE PO Last administered on 16:03; Start 08/21/16 at 16:00; Stop 08/21/16 at 16:01; Status DC Lactulose 20 gm 1X ONCE PO Last administered on 08/21/16 21:56; Start at 21:00; Stop 08/21/16 at 21:04; Status DC Acetaminophen (Tylenol) 650 mg PRN Q6HRS PRN PO Pain Last administered on 08/24 08:21; Start 08/21/16 at 21:45 Calcium Carbonate/ Glycine (Tums) 500 mg PRN AFTMEALHC PRN PO INDIGESTION Last administered on 08/24/16 01:36; Start 08/22/16 at 01:30 Warfarin Sodium (Coumadin) 4 mg 1X WARF ONCE PO Last administered on 16:42; Start 08/22/16 at 16:00; Stop 08/22/16 at 16:01; Status DC Warfarin Sodium (Coumadin) 3 mg 1X WARF ONCE PO Last administered on 16:40; Start 08/23/16 at 16:00; Stop 08/23/16 at 16:01; Status DC Warfarin Sodium (Coumadin) 3 mg 1X WARF ONCE PO ; Start 08/24/16 at 16:00; Stop 08/24/16 at 16:01 Active Scripts Active Reported Allopurinol 100 Mg Tablet 1 Tab PO DAILY Levothyroxine Sodium 150 Mcg Tablet 1 Tab PO DAILY Amlodipine Besylate 2.5 Mg Tablet 2.5 Mg PO DAILY Trazodone Hcl 50 Mg Tablet 1.5 Tab PO QHS Benazepril Hcl 20 Mg Tablet 1 Tab PO DAILY Hydrochlorothiazide Capsule (Hydrochlorothiazide) 12.5 Mg Capsule 1 Cap PO DAILY Citalopram Hbr (Citalopram Hydrobromide) 40 Mg Tablet 1 Tab PO DAILY Vitals/I & O Vital Sign - Last 24 Hours 08/23/16 08/23/16 08/23/16 08/23/16 15:00 15:29 19:00 19:39 Temp 97.6 97.3 97.6 97.3 Pulse 85 78 Resp 16 18 B/P (MAP) 115/72 (86) 108/67 (81) Pulse Ox 92 94 92 O2 Delivery Room Air Room Air Room Air Room Air 08/23/16 08/23/16 08/23/16 08/24/16 20:24 21:24 23:00 03:00 Temp 97.7 97.7 97.7 97.7 Pulse 74 71 Resp 20 20 18 18 B/P (MAP) 113/67 (82) 132/67 (88) Pulse Ox 92 92 92 O2 Delivery Room Air Room Air Room Air Room Air 08/24/16 08/24/16 08/24/16 07:00 08:23 11:00 Temp 97.5 98.4 97.5 98.4 Pulse 71 70 69 Resp 20 20 B/P (MAP) 128/61 (83) 128/61 121/66 (84) Pulse Ox 92 94 O2 Delivery Room Air Room Air TERRY PLAZA III, DO August 24, 2016 12:39
[2016-08-24] MEDS ORDERED: WARFARIN 3 MG TABLET. PO ONE (16:00)
== END 2016-08-24 14:30 | DRG 482 ==
LOC: ER 09:32 → 4 NORTH 10:15
PROVIDERS: ADMIT Internal Medicine; ATTEND Internal Medicine
PROC: 0QS606Z Reposition Right Upper Femur with Intramedullary Internal Fixation Device, Open Approach (ICD-10-PCS; principal; 2016-08-18 07:30)
DX: S72.141A Displaced intertrochanteric fracture of right femur, initial encounter for closed fracture (principal); E03.9 Hypothyroidism, unspecified; I10 Essential (primary) hypertension; M10.9 Gout, unspecified; F41.9 Anxiety disorder, unspecified; W10.9XXA Fall (on) (from) unspecified stairs and steps, initial encounter; E66.9 Obesity, unspecified; K59.00 Constipation, unspecified; M19.90 Unspecified osteoarthritis, unspecified site; K43.2 Incisional hernia without obstruction or gangrene; F12.90 Cannabis use, unspecified, uncomplicated; D72.829 Elevated white blood cell count, unspecified; Z88.0 Allergy status to penicillin; Z91.040 Latex allergy status; Z90.710 Acquired absence of both cervix and uterus; Z82.49 Family history of ischemic heart disease and other diseases of the circulatory system; Z79.2 Long term (current) use of antibiotics; Z79.899 Other long term (current) drug therapy; Z79.1 Long term (current) use of non-steroidal anti-inflammatories (NSAID); Z68.31 Body mass index [BMI] 31.0-31.9, adult
CPT/HCPCS: 36415; 71010; 73502; 76000; 80053; 81001; 85027; 85610; 85730; 87641; 93005; 96374; A4215; C1713; C1887; J0171; J1100; J1650; J1885; J2270; J2405; J2704; J2795; J3010; J3490; J7120; 97110; 97116; 97530; 97535; 99285-25

== ENCOUNTER → 2016-09-09 | Outpatient (CLI) | payer BC ==
[2016-08-24 11:00] VITALS: BP 121/66
[~2016-09-09] MED LIST: ALLO100T PO; AMLO2.5T PO; BENA20TA2 PO; CITA40TA5 PO; HYDR12.53 PO; LEVO150T5 PO; TRAZ50TA15 PO
[2016-09-09 06:07] LABS: PROTHROMBIN TIME PATIENT 21.4 SEC (11.7-14.0)
== END | disposition home or self-care (01) ==
LOC: SPEC 05:21
PROVIDERS: ATTEND Internal Medicine
DX: Z79.01 Long term (current) use of anticoagulants (principal)
CPT/HCPCS: 36415; 85610